=== PATIENT | female | born 1975 | race African-American/Black ===

== ENCOUNTER 2016-09-16 09:58 | Day surgery (SDC) | payer MEDICARE, MEDICAID ==
[~2016-09-16 09:58] MED LIST: CEFAZOLIN 1 GM/D5W RTU 1 GM/50 ML RTUPB IV PRN
[2016-09-16] MEDS ORDERED: BUPIVACAINE HCL 0.5 % INJ/PF 30 ML SDV ONE (10:25)
[2016-09-16] MEDS ORDERED: LIDOCAINE 2% INJ (20 MG/ML) 20 ML MDV ONE (10:25)
[2016-09-16] MEDS ORDERED: ALBUTEROL SULFATE 0.083% NEB 2.5 MG/3 ML AMPUL NEB ONE (11:04)
[2016-09-16] MEDS ORDERED: PROPOFOL INJ 200 MG/20 ML VIAL IV ONE (11:10)
[2016-09-16] MEDS ORDERED: MIDAZOLAM 2 MG/2 ML INJ ONE ×2 (11:10→11:21)
[2016-09-16] MEDS ORDERED: DEXMEDETOMIDINE INJ 80 MCG/20 ML VIAL IV ONE (11:10)
[2016-09-16] MEDS ORDERED: FENTANYL CITRATE INJ/PF 250 MCG/5 ML AMPULE ONE (11:10)
[2016-09-16] MEDS ORDERED: ONDANSETRON HCL INJ/PF 4 MG/2 ML SDV ONE (11:10)
[2016-09-16] MEDS: POLYMYXIN B SULFATE INJ 500000 UNIT VIAL ONE ×2 (12:36)
[2016-09-16] MEDS: BACITRACIN INJ 50,000 UNIT VIAL ONE ×2 (12:36)
[2016-09-16] MEDS: NORMAL SALINE INJ/PF 0.9% 10 ML SDV ONE ×2 (12:36)
--- NOTE | 2016-09-16 14:33 | SURGICARE OPERATIVE REPORT E ---
[facility] Operative Report NAME: LEILANI ENGLISH AGE: 40Y DATE OF SURGERY: 09/16/2016 ROOM: OPERATING SURGEON: CARLINE SILVA DPM DYE COLORIST FORMULATOR: NIR CHAIDEZ DPM PREOPERATIVE DIAGNOSIS: Hallux valgus of the left foot. POSTOPERATIVE DIAGNOSIS: Hallux valgus of the left foot. PROCEDURE: Modified right bunionectomy of the left foot. DESCRIPTION OF PROCEDURE: On 09/16/2016, the patient was admitted to [facility] with complaints of painful left foot, was taken to the operating room where following induction of intravenous sedation and regional local anesthesia, the patient's left foot and leg were prepped and draped in the usual sterile manner. Tourniquet was placed at the proximal ankle malleoli. Esmarch was applied. Tourniquet was inflated to a level of 250 mmHg for the purpose of hemostasis. Esmarch was removed and sterile draping was completed. The following procedure was performed: Modified right bunionectomy. Attention was directed to the dorsal aspect of the patient's first metatarsophalangeal joint where a 3 cm linear incision was placed medial to the longer extensor tendon and was deepened to the subcutaneous tissue and superficial fascia. All bleeding vessels were clamped, ligated, and bovied as necessary for hemostasis. Incision was further deepened via sharp and blunt dissection down to the level of the capsular and periosteal structures that were sharply incised in a similar fashion. Skin incision freed from the osseous attachments, thus bringing in view the hypertrophied medial aspect of the first metatarsal head. At that time, we utilized a sagittal saw with osteomized of the medial bump. At that time, attention was directed to the interspace lateral aspect first metatarsophalangeal joint where a lateral release was performed. Joint was inspected. It was felt that there was an adequate amount of bone removal. It was felt that there was still some dorsal spurring, which was then removed with the rongeur. Joint surfaces were inspected and noted to be free of pitting and any other arthritic changes. There was noted to be thickening of the medial aspect of the capsule of the first metatarsophalangeal joint, and utilizing sharp dissection, the capsule was thinned on its innermost aspect. At that time, the area was flushed with copious amounts of sterile antibiotic solution and inspected for any soft tissue or osseous debris with none being noted. The capsular and periosteal structures were then coapted and maintained with simple interrupted suture of 3-0 Vicryl. At that time, a medial capsulorrhaphy was then performed with a vertical incision at the medial aspect of the joint. It was sutured in a horizontal mattress fashion with 2-0 FiberWire. This was for medial stabilization of the joint. At that time, it was felt that the extensor hallucis longus tendon was still somewhat contracted causing abnormal retrograde pressure on the joint. At that time a z-plasty lengthening was performed. It was coapted and maintained with running, locking suture of 3-0 FiberWire. At that time, EHL tendon sheath was reconstructed and with the capsular and periosteal structures were coapted and maintained with simple interrupted suture of 4-0 Vicryl. Skin incision was then coapted and maintained with interrupted horizontal mattress suture of 4-0 nylon. It should be noted that pre- and post-procedure x-rays were obtained through fluoroscopic studies. Sterile dressing consisting of Vikas silk, 4 x 4's, Kip, Kerlix, and Coflex were applied to the patient's left foot. Tourniquet was rapidly deflated. Capillary filling time was noted to be instantaneous to all digits. The patient appeared to tolerate surgery and anesthesia well and left the operating room with all vital signs and was taken to the recovery room where further monitored by the Anesthesia Department. DICTATING PHYSICIAN: CARLINE SILVA DPM [id number] PHY#: [id number] ID: [id number] JOB#: [id number] ACCT: [id number] cc:CARLINE SILVA DPM > [facility]
== END 2016-09-16 14:55 | disposition home or self-care (01) ==
LOC: SC 09:58
PROVIDERS: ATTEND Preventive Medicine Undersea and Hyperbaric Medicine
PROC: 0QBR0ZZ Excision of Left Toe Phalanx, Open Approach (ICD-10-PCS; 2016-09-16)
PROC: 0QBP0ZZ Excision of Left Metatarsal, Open Approach (ICD-10-PCS; principal; 2016-09-16 11:00)
DX: M20.12 Hallux valgus (acquired), left foot (principal); I10 Essential (primary) hypertension; M19.90 Unspecified osteoarthritis, unspecified site; K21.9 Gastro-esophageal reflux disease without esophagitis; E66.9 Obesity, unspecified; Z79.899 Other long term (current) drug therapy; Z88.2 Allergy status to sulfonamides; Z91.040 Latex allergy status; Z91.041 Radiographic dye allergy status
CPT/HCPCS: 73620; 28292; J2250; J3490 ×5; J0690; J3010; J2405; J2704; A9270; 01480

== ENCOUNTER → 2017-01-01 | Outpatient (CLI) | payer MEDICARE, MEDICAID | LOC: RAD 11:58 | PROVIDERS: ATTEND Obstetrics & Gynecology | DX: Z30.431 Encounter for routine checking of intrauterine contraceptive device (principal); T83.32XA Displacement of intrauterine contraceptive device, initial encounter | CPT/HCPCS: 72170 ==

== ENCOUNTER → 2017-02-18 | Outpatient (CLI) | payer MEDICARE, MEDICAID ==
--- NOTE | 2017-02-23 09:06 | WOMENS IMAGING REPORT ---
EXAM DESCRIPTION: 3D SCREENING MAMMO BILAT COMPLETED DATE/TIME: 02/18/2017 11:15 am REASON FOR STUDY: Z12.31, ROUTINE SCREENING MAMMO (3D) Z12.31 ENCNTR SCREEN MAMMOGRAM FOR MALIGNANT NEOPLASM OF JAYNA COMPARISON: Multiple since 2013 TECHNIQUE: Standard craniocaudal and mediolateral oblique views of each breast recorded using digita l acquisition and breast tomosynthesis. LIMITATIONS: None. FINDINGS: Findings present which are benign by mammographic criteria. No suspicious masses, calcifi cations or architectural distortion. Pertinent benign findings: Benign right breast intramammary lymph nodes Read with the assistance of CAD. .[facility] - R2 Cenova Version 1.3 .[facility] - R2 Cenova Version 1.3 .[facility] - R2 Cenova Version 2.4 .[facility] [place] - R2 Cenova Version 2.4 .[facility] - R2 [employer] Supervisor Version 9.2 Benign mammographic findings may include one or more of the following: Smooth masses, popcorn/rim/co arse calcifications, asymmetries, post-procedure changes, and lesions with long-standing stability. IMPRESSION: BENIGN MAMMOGRAPHIC FINDINGS. BIRADS 2 BREAST DENSITY: b. There are scattered areas of fibroglandular density. BIRAD: 2 BENIGN FINDING(S) RECOMMENDATION: RECOMMENDATION: ROUTINE SCREENING COMMENT: The patient has been notified of the results by letter per SA requirements. Additional no tification policies are in place for contacting patient with suspicious or incomplete findings. Quality ID #[id number]: The [employer] recommends an annual screening mammogram for women aged 40 years or over. This facility utilizes a reminder system to ensure that all patients receive reminder letters, and/or direct phone calls for appointments. This includes reminders for routine scr eening mammograms, diagnostic mammograms, or other Breast Imaging Interventions when appropriate. Th is patient will be placed in the appropriate reminder system. The [employer] (ACR) has developed recommendations for screening MRI of the breast s in certain patient populations, to be used in conjunction with mammography. Breast MRI surveillanc e may be appropriate for women with more than 20% lifetime risk of developing breast cancer as deter mined by genetic testing, significant family history of the disease, or history of mantle radiation f or Hodgkins Disease. ACR Practice Guidelines 2008. DBT Technology DBT is a type of tomographic mammography. With conventional mammography, overlapping breast tissue ma y make lesions difficult to detect, even with good compression. DBT uses an x-ray tube that rotates a round the breast, taking images at different angles. These images are then combined to create thin sl ices of the breast that the radiologist can view as a 3D reconstruction. The YPlan unit can perform full-field digital mammograms (2D imaging); or DBT (3D imaging); or both, in a combination mode that quickly performs both the mammogram and the tomosynthesis scan while the breast is still compressed. PQRS 6045F: Fluoroscopic imaging is not utilized for breast tomosynthesis. TECHNICAL DOCUMENTATION: FINDING NUMBER: (1) ASSESSMENT: (1) JOB ID: [id number] [employer]- All Rights Reserved
== END ==
LOC: WI 10:37
PROVIDERS: ATTEND Internal Medicine
DX: Z12.31 Encounter for screening mammogram for malignant neoplasm of breast (principal)
CPT/HCPCS: 77063; G0202; 77067

== ENCOUNTER 2017-02-23 21:53 | Emergency (ER) | payer MEDICARE, MEDICAID ==
--- NOTE | 2017-02-23 22:52 | ER Document Report ---
ED General - General Chief Complaint: Swelling Stated Complaint: NECK PAIN Time Seen by Provider: 02/23/17 22:09 Notes: Patient is a 41 year old female who presents with a multitude of complaints that have been present over the past 4-5 months unchanged today. No reason for an acute visit to the emergency department today however than that her symptoms have persisted. She reports intermittent generalized fatigue, hand cramping, nausea, swelling of her neck, and feeling overheated. Nothing is new about her symptoms today. Denies anything improves or worsens her symptoms. She states she has seen her primary care doctor and have labs done but does not know the results on. Denies any recent medication changes. Denies any drug or alcohol use. She denies any chest pain, shortness of breath, vomiting or diarrhea. No syncope or fever. States that she did not have these symptoms approximately 6 months ago. TRAVEL OUTSIDE OF THE [place] IN LAST 30 DAYS: No - Related Data Allergies/Adverse Reactions: latex [Latex] Allergy (Severe, Verified 09/06/15 11:39) red blisters Shellfish * [Shellfish] Allergy (Severe, Verified 09/06/15 11:39) throat swells sulfamethoxazole [From Bactrim] Allergy (Mild, Verified 09/06/15 11:39) Generalized rash,swells tongue trimethoprim [From Bactrim] Allergy (Mild, Verified 09/06/15 11:39) Generalized rash,tongue swells calcium carbonate [From Tums] Adverse Reaction (Severe, Verified 09/06/15 11:39) severe abdominal pain surgical tape Allergy (Severe, Uncoded 09/06/15 11:39) Generalized Itching,blisters iodine Allergy (Mild, Uncoded 09/06/15 11:39) stops hair growth IVP DYE Allergy (Uncoded 09/15/16 11:47) Past Medical History - General Information source: Patient - Social History Smoking Status: Never Smoker Chew tobacco use (# tins/day): No Drug Abuse: None Lives with: Family Family History: Reviewed & Not Pertinent Patient has suicidal ideation: No Patient has homicidal ideation: No - Past Medical History Cardiac Medical History: Reports: Hx Hypertension - MEDICATED Denies: Hx Coronary Artery Disease, Hx Heart Attack Pulmonary Medical History: Reports: Hx Pneumonia Denies: Hx Asthma, Hx Bronchitis, Hx COPD Neurological Medical History: Denies: Hx Cerebrovascular Accident, Hx Seizures Endocrine Medical History: Reports: Hx Diabetes Mellitus Type 2 Renal/ Medical History: Denies: Hx Peritoneal Dialysis GI Medical History: Reports: Hx Irritable Bowel. 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 Denies: Hx Hysterectomy, Hx Mastectomy, Hx Open Heart Surgery, Hx Pacemaker - Immunizations Hx Diphtheria, Pertussis, Tetanus Vaccination: No Hx Pneumococcal Vaccination: 08/30/12 Review of Systems - Review of Systems Notes: Constitutional: Negative for fever. HENT: Negative for sore throat. Eyes: Negative for visual changes. Cardiovascular: Negative for chest pain. Respiratory: Negative for shortness of breath. Gastrointestinal: Negative for abdominal pain, vomiting or diarrhea. Genitourinary: Negative for dysuria. Musculoskeletal: Negative for back pain. Skin: Negative for rash. Neurological: Negative for headaches, weakness or numbness. 10 point ROS negative except as marked above and in HPI. Physical Exam - Vital signs Vitals: Temp Pulse Resp BP Pulse Ox 98.1 F 98 18 189/104 H 98 02/23/17 21:57 02/23/17 21:57 02/23/17 21:57 02/23/17 21:57 02/23/17 21:57 Interpretation: Hypertensive Notes: PHYSICAL EXAMINATION: GENERAL: Well-appearing, well-nourished and in no acute distress. HEAD: Atraumatic, normocephalic. EYES: Pupils equal round and reactive to light, extraocular movements intact, sclera anicteric, conjunctiva are normal. ENT: nares patent, oropharynx clear without exudates. Moist mucous membranes. NECK: Normal range of motion, supple without lymphadenopathy LUNGS: Breath sounds clear to auscultation bilaterally and equal. No wheezes rales or rhonchi. HEART: Regular rate and rhythm without murmurs ABDOMEN: Soft, nontender, normoactive bowel sounds. No guarding, no rebound. No masses appreciated. EXTREMITIES: Normal range of motion, no pitting or edema. No cyanosis. NEUROLOGICAL: No focal neurological deficits. Moves all extremities spontaneously and on command. PSYCH: Normal mood, normal affect. SKIN: Warm, Dry, normal turgor, no rashes or lesions noted. Course - Re-evaluation Re-evalutation: 02/23/17 22:52 Patient presents with multiple vague complaints that did not appear to be concerning for any acute life-threatening pathology. Vitals are within normal limits at triage and at time of discharge. Physical examination is unremarkable. Patient has tolerated oral intake without difficulty. Patient was not noted to be in distress at any point during their ER visit. At this time, based on the reassuring evaluation, I do not suspect an acute NE, pulmonary embolus, aortic dissection, acute intra-abdominal pathology, stroke, or sepsis.Will discharge with return precautions and follow-up recommendations. Verbal discharge instructions given a the bedside and opportunity for questions given. Medication warnings reviewed. Patient is in agreement with this plan and has verbalized understanding of return precautions and the need for primary care follow-up in the next 24-72 hours. - Vital Signs Vital signs: Temp Pulse Resp BP Pulse Ox 98.1 F 99 18 168/103 H 98 02/23/17 21:57 02/24/17 01:17 02/24/17 01:17 02/24/17 01:17 02/24/17 01:17 - Laboratory Result Diagrams: 02/23/17 23:25 02/23/17 23:25 Laboratory results interpreted by me: 02/23/17 02/23/17 02/23/17 23:25 23:25 23:25 Hct 35.6 L MCV 75 L MCH 25.4 L RDW 16.1 H Monocytes % 13.4 H Glucose 144 H Hemoglobin A1c % 6.6 H Discharge - Discharge Clinical Impression: Hyperglycemia Fatigue Qualifiers: Fatigue type: unspecified Qualified Code(s): R53.83 - Other fatigue Condition: Good Disposition: HOME, SELF-CARE Additional Instructions: Please follow-up with your primary care doctor regarding your symptoms today. Please return to the emergency room immediately if you experience any concerning symptoms including high fevers, severe headache, chest pain, difficulty breathing, abdominal pain, slurred speech, numbness or weakness in your arms or legs, or any other symptom that concerns you. Referrals: GERRY DONAHUE MD [Primary Care Provider] - Follow up as needed
[2017-02-23 23:56] LABS: ABSOLUTE EOSINOPHILS # (AUTO) 0.2 10^3/uL (0.0-0.6); ABSOLUTE LYMPHOCYTES (AUTO) 2.8 10^3/uL (0.5-4.7); ABSOLUTE MONOCYTES (AUTO) 1.1 10^3/uL (0.1-1.4); BASOPHILS % (AUTO) 0.5 % (0-2); EOSINOPHILS % (AUTO) 2.5 % (0-6); HEMATOCRIT 35.6 % (36.0-47.0); HEMOGLOBIN 12.1 g/dL (12.0-15.5); HGB HCT DIFFERENCE 0.7; LYMPHOCYTES % (AUTO) 34.3 % (13-45); MEAN CORPUSCULAR HEMOGLOBIN 25.4 pg (27.0-33.4); MEAN CORPUSCULAR HGB CONC 33.9 g/dL (32.0-36.0); MEAN CORPUSCULAR VOLUME 75 fl (80-97); MONOCYTES % (AUTO) 13.4 % (3-13); RED BLOOD COUNT 4.75 10^6/uL (3.72-5.28); RED CELL DISTRIBUTION WIDTH 16.1 % (11.5-14.0); SEGMENTED NEUTROPHILS % (AUTO) 49.3 % (42-78); WHITE BLOOD COUNT 8.2 10^3/uL (4.0-10.5)
[2017-02-24 00:08] LABS: ANION GAP 11 (5-19); BLOOD UREA NITROGEN 14 mg/dL (7-20); CALCIUM 9.1 mg/dL (8.4-10.2); CARBON DIOXIDE 27 mmol/L (22-30); CHLORIDE 104 mmol/L (98-107); GLUCOSE 144 mg/dL (75-110); POTASSIUM 4.1 mmol/L (3.6-5.0); SODIUM 141.8 mmol/L (137-145)
[2017-02-24 01:18] VITALS: BP 168/103
[2017-02-24 01:28] LABS: THYROID STIMULATING HORMONE 3.47 uIU/mL (0.47-4.68)
== END 2017-02-24 01:17 | disposition home or self-care (01) ==
LOC: ER 21:53
DX: E11.65 Type 2 diabetes mellitus with hyperglycemia (principal); R22.1 Localized swelling, mass and lump, neck; R53.83 Other fatigue; R11.0 Nausea; R25.2 Cramp and spasm; I10 Essential (primary) hypertension; Z91.040 Latex allergy status; Z91.041 Radiographic dye allergy status; Z91.013 Allergy to seafood
CPT/HCPCS: 36415; 80048; 83036; 84439; 84443; 84703; 85025; 99283

== ENCOUNTER 2017-02-27 19:28 | Emergency (ER) | payer MEDICARE, MEDICAID ==
--- NOTE | 2017-02-27 20:45 | ER Document Report ---
ED Medical Screen (RME) - General Chief Complaint: Abdominal Pain Stated Complaint: ABDOMEN PAIN Time Seen by Provider: 02/27/17 20:29 Notes: Patient is complaining of abdominal pain, primarily in the right upper quadrant and epigastric region of her abdomen for the past month, every day.. Patient says that she was here Wednesday and evaluated because she was having the same pain and also feeling hot and sweaty. She says that she has had nausea and vomiting for the past 4 days, maybe 3 times a day. She is also had just as much diarrhea, also for 4 days, since Wednesday. She feels some pressure in her throat, but is able to swallow without difficulty. Has not had any fevers. Was also seen in her private doctor's office on Wednesday. PMH: C-sections, IUD, hypertension, TRAVEL OUTSIDE OF THE [place] IN LAST 30 DAYS: No - Related Data Allergies/Adverse Reactions: latex [Latex] Allergy (Severe, Verified 09/06/15 11:39) red blisters Shellfish * [Shellfish] Allergy (Severe, Verified 09/06/15 11:39) throat swells sulfamethoxazole [From Bactrim] Allergy (Mild, Verified 09/06/15 11:39) Generalized rash,swells tongue trimethoprim [From Bactrim] Allergy (Mild, Verified 09/06/15 11:39) Generalized rash,tongue swells calcium carbonate [From Tums] Adverse Reaction (Severe, Verified 09/06/15 11:39) severe abdominal pain surgical tape Allergy (Severe, Uncoded 09/06/15 11:39) Generalized Itching,blisters iodine Allergy (Mild, Uncoded 09/06/15 11:39) stops hair growth IVP DYE Allergy (Uncoded 09/15/16 11:47) Past Medical History - Social History Chew tobacco use (# tins/day): No Frequency of alcohol use: None Drug Abuse: None - Past Medical History Cardiac Medical History: Reports: Hx Hypertension - MEDICATED Denies: Hx Coronary Artery Disease, Hx Heart Attack Pulmonary Medical History: Reports: Hx Pneumonia Denies: Hx Asthma, Hx Bronchitis, Hx COPD Neurological Medical History: Denies: Hx Cerebrovascular Accident, Hx Seizures Endocrine Medical History: Reports: Hx Diabetes Mellitus Type 2 Renal/ Medical History: Denies: Hx Peritoneal Dialysis GI Medical History: Reports: Hx Irritable Bowel. 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 Denies: Hx Hysterectomy, Hx Mastectomy, Hx Open Heart Surgery, Hx Pacemaker - Immunizations Hx Diphtheria, Pertussis, Tetanus Vaccination: No Physical Exam - Vital signs Vitals: Temp Pulse Resp BP Pulse Ox 99.1 F 90 17 142/70 H 99 02/27/17 19:58 02/27/17 19:58 02/27/17 19:58 02/27/17 19:58 02/27/17 19:58 Course - Vital Signs Vital signs: Temp Pulse Resp BP Pulse Ox 99.1 F 90 17 142/70 H 99 02/27/17 19:58 02/27/17 19:58 02/27/17 19:58 02/27/17 19:58 02/27/17 19:58
[2017-02-27 21:14] LABS: ABSOLUTE EOSINOPHILS # (AUTO) 0.1 10^3/uL (0.0-0.6); ABSOLUTE LYMPHOCYTES (AUTO) 3.7 10^3/uL (0.5-4.7); ABSOLUTE MONOCYTES (AUTO) 1.3 10^3/uL (0.1-1.4); ABSOLUTE NEUT (AUTO) 4.2 10^3/uL (1.7-8.2); BASOPHILS % (AUTO) 0.2 % (0-2); EOSINOPHILS % (AUTO) 1.1 % (0-6); HEMATOCRIT 35.3 % (36.0-47.0); HEMOGLOBIN 11.7 g/dL (12.0-15.5); HGB HCT DIFFERENCE -0.2; LYMPHOCYTES % (AUTO) 39.6 % (13-45); MEAN CORPUSCULAR HEMOGLOBIN 25.1 pg (27.0-33.4); MEAN CORPUSCULAR HGB CONC 33.2 g/dL (32.0-36.0); MEAN CORPUSCULAR VOLUME 76 fl (80-97); MONOCYTES % (AUTO) 14.3 % (3-13); RED BLOOD COUNT 4.65 10^6/uL (3.72-5.28); RED CELL DISTRIBUTION WIDTH 16.6 % (11.5-14.0); SEGMENTED NEUTROPHILS % (AUTO) 44.8 % (42-78); WHITE BLOOD COUNT 9.3 10^3/uL (4.0-10.5)
[2017-02-27 21:23] LABS: APPEARANCE,URINE SLIGHTLY-CLOUDY; BILIRUBIN,URINE NEGATIVE (NEGATIVE); GLUCOSE, URINE NEGATIVE (NEGATIVE); KETONES,URINE NEGATIVE (NEGATIVE); LEUKOCYTE ESTERASE,URINE NEGATIVE (NEGATIVE); NITRITE,URINE NEGATIVE (NEGATIVE); PROTEIN,URINE 100 mg/dL (NEGATIVE); URINE SPECIFIC GRAVITY 1.019; UROBILINOGEN,URINE NEGATIVE mg/dL (<2.0)
[2017-02-27 21:26] LABS: ALANINE AMINOTRANSFERASE 35 U/L (9-52); ALBUMIN 4.1 g/dL (3.5-5.0); ALKALINE PHOSPHATASE 104 U/L (38-126); ANION GAP 13 (5-19); ASPARTATE AMINO TRANSFERASE 22 U/L (14-36); BILIRUBIN,DIRECT 0.3 mg/dL (0.0-0.4); BILIRUBIN,TOTAL 0.4 mg/dL (0.2-1.3); BLOOD UREA NITROGEN 9 mg/dL (7-20); CALCIUM 8.6 mg/dL (8.4-10.2); CARBON DIOXIDE 26 mmol/L (22-30); CHLORIDE 102 mmol/L (98-107); CREATININE RESULT 0.85 mg/dL (0.52-1.25); GLUCOSE 165 mg/dL (75-110); LIPASE 473.1 U/L (23-300); POTASSIUM 3.9 mmol/L (3.6-5.0); SODIUM 140.9 mmol/L (137-145); TOTAL PROTEIN 7.7 g/dL (6.3-8.2)
--- NOTE | 2017-02-27 22:03 | ER Document Report ---
ED GI/ - General Chief Complaint: Abdominal Pain Stated Complaint: ABDOMEN PAIN Time Seen by Provider: 02/27/17 20:29 Notes: Patient is a 41-year-old female comes emergency department for chief complaint of abdominal pain, she states the pain is worst in her mid upper abdomen, she states she has had this for the past month, she states she has had about 2-3 episodes of vomiting over the past 4 days, she denies blood in vomit, she reports some diarrhea but denies black or bloody stools. She denies fever or chills. Past medical history of , IUD placement, hypertension, GERD. He states she is taking omeprazole daily. TRAVEL OUTSIDE OF THE [place] IN LAST 30 DAYS: No - Related Data Allergies/Adverse Reactions: latex [Latex] Allergy (Severe, Verified 09/06/15 11:39) red blisters Shellfish * [Shellfish] Allergy (Severe, Verified 09/06/15 11:39) throat swells sulfamethoxazole [From Bactrim] Allergy (Mild, Verified 09/06/15 11:39) Generalized rash,swells tongue trimethoprim [From Bactrim] Allergy (Mild, Verified 09/06/15 11:39) Generalized rash,tongue swells calcium carbonate [From Tums] Adverse Reaction (Severe, Verified 09/06/15 11:39) severe abdominal pain surgical tape Allergy (Severe, Uncoded 09/06/15 11:39) Generalized Itching,blisters iodine Allergy (Mild, Uncoded 09/06/15 11:39) stops hair growth IVP DYE Allergy (Uncoded 09/15/16 11:47) Past Medical History - General Information source: Patient - Social History Smoking Status: Never Smoker Chew tobacco use (# tins/day): No Frequency of alcohol use: None Drug Abuse: None Lives with: Family Family History: Reviewed & Not Pertinent Patient has suicidal ideation: No Patient has homicidal ideation: No - Past Medical History Cardiac Medical History: Reports: Hx Hypertension - MEDICATED Denies: Hx Coronary Artery Disease, Hx Heart Attack Pulmonary Medical History: Reports: Hx Pneumonia Denies: Hx Asthma, Hx Bronchitis, Hx COPD Neurological Medical History: Denies: Hx Cerebrovascular Accident, Hx Seizures Endocrine Medical History: Reports: Hx Diabetes Mellitus Type 2 Renal/ Medical History: Denies: Hx Peritoneal Dialysis GI Medical History: Reports: Hx Irritable Bowel. 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 Denies: Hx Hysterectomy, Hx Mastectomy, Hx Open Heart Surgery, Hx Pacemaker - Immunizations Hx Diphtheria, Pertussis, Tetanus Vaccination: No Hx Pneumococcal Vaccination: 08/30/12 Review of Systems - Review of Systems Constitutional: No symptoms reported EENT: No symptoms reported Cardiovascular: No symptoms reported Respiratory: No symptoms reported Gastrointestinal: See HPI Genitourinary: No symptoms reported Female Genitourinary: No symptoms reported Musculoskeletal: No symptoms reported Skin: No symptoms reported Hematologic/Lymphatic: No symptoms reported Neurological/Psychological: No symptoms reported Physical Exam - Vital signs Vitals: Temp Pulse Resp BP Pulse Ox 99.1 F 90 17 142/70 H 99 02/27/17 19:58 02/27/17 19:58 02/27/17 19:58 02/27/17 19:58 02/27/17 19:58 Interpretation: Normal - General General appearance: Appears well, Alert In distress: None - HEENT Head: Normocephalic, Atraumatic Eyes: Normal Extraocular movements intact: Yes Eyelashes: Normal Pupils: PERRL Nasal: Normal Mouth/Lips: Normal Mucous membranes: Normal Pharynx: Normal Neck: Normal - Respiratory Respiratory status: No respiratory distress Chest status: Nontender Breath sounds: Normal Chest palpation: Normal - Cardiovascular Rhythm: Regular Heart sounds: Normal auscultation Murmur: No - Abdominal Inspection: Normal Distension: No distension Bowel sounds: Normal Tenderness: Tender - Generalized mild tenderness in the upper abdomen with no Quinn sign, no guarding, no rigidity, no rebound Organomegaly: No organomegaly - Back Back: Normal, Nontender. No: Tender, CVA tenderness - Extremities General upper extremity: Normal inspection, Nontender, Normal color, Normal ROM , Normal temperature General lower extremity: Normal inspection, Nontender, Normal color, Normal ROM , Normal temperature, Normal weight bearing. No: Gayla's sign - Neurological Neuro grossly intact: Yes Cognition: Normal Orientation: AAOx4 Emma Coma Scale Eye Opening: Spontaneous Emma Coma Scale Verbal: Oriented Mccall Coma Scale Motor: Obeys Commands Emma Coma Scale Total: 15 Speech: Normal Motor strength normal: LUE, RUE, LLE, RLE Sensory: Normal - Psychological Associated symptoms: Normal affect, Normal mood - Skin Skin Temperature: Warm Skin Moisture: Dry Skin Color: Normal Course - Re-evaluation Re-evalutation: Well-appearing. She tolerated Carafate and fluids by mouth without any difficulty. She had improvement of her symptoms. Ultrasound reviewed and shows no acute abnormality. CBC, chemistry, lipase reviewed and showed no concerning abnormalities. Discussed all results in detail with patient. Will prescribe prescription of Carafate for her to take in addition to the omeprazole , discussed follow-up recommendations, discussed return precautions, patient states understanding and agreement. - Vital Signs Vital signs: Temp Pulse Resp BP Pulse Ox 97.5 F 78 18 129/61 H 98 02/27/17 23:49 02/27/17 23:49 02/27/17 23:49 02/27/17 23:49 02/27/17 23:49 - Laboratory Result Diagrams: 02/27/17 20:50 02/27/17 20:50 Laboratory results interpreted by me: 02/27/17 02/27/17 02/27/17 20:35 20:50 20:50 Hgb 11.7 L Hct 35.3 L MCV 76 L MCH 25.1 L RDW 16.6 H Monocytes % 14.3 H Glucose 165 H Lipase 473.1 H Urine Protein 100 H Discharge - Discharge Clinical Impression: Abdominal pain Qualifiers: Abdominal location: upper abdomen, unspecified Qualified Code(s): R10.10 - Upper abdominal pain, unspecified Disposition: HOME, SELF-CARE Additional Instructions: Your workup today did not show any concerning abnormalities, your ultrasound is normal The exact cause of your upper abdominal pain and nausea/vomiting is unclear, take the Carafate as prescribed, take the nausea medication if needed, continue with bland food diet. If symptoms continue I recommend a follow-up with his primary care provider, you may need a HIDA scan, you may need additional workup as well. Return to emergency department for any concerning or worsening symptoms including severe pain, uncontrolled vomiting, bloody bowel movements, or any other concerning symptoms. Prescriptions: Ondansetron [Zofran Odt 4 mg Tablet] 1 - 2 tab PO Q4H PRN #20 tab.rapdis PRN Reason: For Nausea/Vomiting Sucralfate [Carafate 1 gm Tablet] 1 gm PO QID #40 tablet Referrals: GERRY DONAHUE MD [Primary Care Provider] - Follow up as needed
--- NOTE | 2017-02-27 22:51 | RADIOLOGY REPORT (SQ) ---
EXAM DESCRIPTION: U/S ABDOMEN LIMITED W/O DOP COMPLETED DATE/TIME: 02/27/2017 10:41 pm REASON FOR STUDY: epigastric pain, vomiting COMPARISON: None. TECHNIQUE: Dynamic and static grayscale images acquired of the abdomen and recorded on PACS. Additio nal selected color Doppler and spectral images recorded. LIMITATIONS: Intervening bowel gas limits evaluation of those body and tail of pancreas. FINDINGS: PANCREAS: No masses. Visualized pancreatic duct normal caliber. LIVER: No masses. Echotexture normal. LIVER VASCULATURE: Normal directional flow of the main portal vein and hepatic veins. GALLBLADDER: No stones. Normal wall thickness. No pericholecystic fluid. ULTRASOUND-DETECTED SHER'S SIGN: Negative. INTRAHEPATIC DUCTS AND COMMON DUCT: CBD and intrahepatic ducts normal caliber. No filling defects. INFERIOR VENA CAVA: Normal flow. AORTA: No aneurysm. RIGHT KIDNEY: Normal size. Normal echogenicity. No solid or suspicious masses. No hydronephrosis. No calcifications. PERITONEAL AND RIGHT PLEURAL SPACE: No ascites or effusions. OTHER: No other significant findings. IMPRESSION: NORMAL RIGHT UPPER QUADRANT ULTRASOUND. TECHNICAL DOCUMENTATION: JOB ID: [id number] [employer]- All Rights Reserved
[2017-02-27] MEDS ORDERED: SUCRALFATE 1 GM TABLET PO ONE (23:20)
[2017-02-27 23:51] VITALS: BP 129/61
== END 2017-02-27 23:51 | disposition home or self-care (01) ==
LOC: ER 19:28
DX: R10.10 Upper abdominal pain, unspecified (principal); R11.10 Vomiting, unspecified; K21.9 Gastro-esophageal reflux disease without esophagitis; I10 Essential (primary) hypertension; E11.9 Type 2 diabetes mellitus without complications; M17.0 Bilateral primary osteoarthritis of knee; M47.9 Spondylosis, unspecified; Z88.3 Allergy status to other anti-infective agents; Z91.041 Radiographic dye allergy status; Z91.013 Allergy to seafood; Z91.040 Latex allergy status; Z97.5 Presence of (intrauterine) contraceptive device
CPT/HCPCS: 99284; 36415; 83690; 84703; 85025; 80053; 81001; 76705; A9270

== ENCOUNTER 2018-02-15 23:25 | Emergency (ER) | payer MEDICARE, MEDICAID ==
[2018-02-16 02:35] LABS: ABSOLUTE BASOPHILS # (AUTO) 0.1 10^3/uL (0.0-0.2); ABSOLUTE EOSINOPHILS # (AUTO) 0.1 10^3/uL (0.0-0.6); ABSOLUTE LYMPHOCYTES (AUTO) 3.3 10^3/uL (0.5-4.7); ABSOLUTE NEUT (AUTO) 5.4 10^3/uL (1.7-8.2); BASOPHILS % (AUTO) 0.9 % (0-2); EOSINOPHILS % (AUTO) 0.7 % (0-6); HEMATOCRIT 34.6 % (36.0-47.0); LYMPHOCYTES % (AUTO) 33.5 % (13-45); MEAN CORPUSCULAR HEMOGLOBIN 26.1 pg (27.0-33.4); MEAN CORPUSCULAR HGB CONC 34.6 g/dL (32.0-36.0); MEAN CORPUSCULAR VOLUME 76 fl (80-97); MONOCYTES % (AUTO) 9.8 % (3-13); PLATELET COUNT 281 10^3/uL (150-450); RED BLOOD COUNT 4.58 10^6/uL (3.72-5.28); RED CELL DISTRIBUTION WIDTH 16.4 % (11.5-14.0); SEGMENTED NEUTROPHILS % (AUTO) 55.1 % (42-78); TOTAL CELLS COUNTED % (AUTO) 100 %; WHITE BLOOD COUNT 9.8 10^3/uL (4.0-10.5)
--- NOTE | 2018-02-16 02:46 | ER Document Report ---
ED General - General Chief Complaint: Headache Stated Complaint: ABDOMINAL PAIN Time Seen by Provider: 02/16/18 02:30 Mode of Arrival: Ambulatory Information source: Patient Notes: 42 yr old female hx of peripheral edema on furosemide 40 mg daily presents with multiple complaints. pt notes that she has a sharp pain o nthe left chest that hurts with coughingof 2-3 week duration, denies any sob or dvt or pe risk factors, pt then notes abdominal pain over the past few months intermittently sharp, then patient admits to neck pain on the left when she rotates the neck radiating to the left shoulder and to her back. pt then notes bilateral peripheral edema worsening over the past 3 weeks that resolves with raising legs. pt then notes that she is seeing different colors, she notes her dress is red but she sees it as pink and something was brown and she saw it as black. TRAVEL OUTSIDE OF THE [place] IN LAST 30 DAYS: No - HPI Onset: Other Onset/Duration: Persistent Quality of pain: Cramping Severity: Moderate Pain Level: 2 Associated symptoms: Body/muscle aches, Nonproductive cough, Headache, Leg swelling Exacerbated by: Movement Relieved by: Denies Similar symptoms previously: No Recently seen / treated by doctor: No - Related Data Allergies/Adverse Reactions: latex [Latex] Allergy (Severe, Verified 09/06/15 11:39) red blisters Shellfish * [Shellfish] Allergy (Severe, Verified 09/06/15 11:39) throat swells sulfamethoxazole [From Bactrim] Allergy (Mild, Verified 09/06/15 11:39) Generalized rash,swells tongue trimethoprim [From Bactrim] Allergy (Mild, Verified 09/06/15 11:39) Generalized rash,tongue swells calcium carbonate [From Tums] Adverse Reaction (Severe, Verified 09/06/15 11:39) severe abdominal pain surgical tape Allergy (Severe, Uncoded 09/06/15 11:39) Generalized Itching,blisters iodine Allergy (Mild, Uncoded 09/06/15 11:39) stops hair growth IVP DYE Allergy (Uncoded 09/15/16 11:47) Past Medical History - Social History Smoking Status: Never Smoker Cigarette use (# per day): No Chew tobacco use (# tins/day): No Smoking Education Provided: No Family History: Reviewed & Not Pertinent - Past Medical History Cardiac Medical History: Reports: Hx Hypertension - MEDICATED Denies: Hx Coronary Artery Disease, Hx Heart Attack Pulmonary Medical History: Reports: Hx Pneumonia Denies: Hx Asthma, Hx Bronchitis, Hx COPD Neurological Medical History: Denies: Hx Cerebrovascular Accident, Hx Seizures Endocrine Medical History: Reports: Hx Diabetes Mellitus Type 2 Renal/ Medical History: Denies: Hx Peritoneal Dialysis GI Medical History: Reports: Hx Irritable Bowel. 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 Denies: Hx Hysterectomy, Hx Mastectomy, Hx Open Heart Surgery, Hx Pacemaker - Immunizations Hx Diphtheria, Pertussis, Tetanus Vaccination: No Hx Pneumococcal Vaccination: 08/30/12 Review of Systems - Review of Systems Notes: REVIEW OF SYSTEMS: CONSTITUTIONAL : Denies fever, chills, or sweats. admits to multiple recent illnesses EENT: admits to visual issues CARDIOVASCULAR: admits to peripheral edema RESPIRATORY: admits to cough GASTROINTESTINAL: admits to abd pain GENITOURINARY: Denies difficulty urinating, painful urination, burning, frequency, blood in urine, or discharge. FEMALE GENITOURINARY: Denies vaginal bleeding, heavy or abnormal periods, irregular periods. Denies vaginal discharge or odor. MUSCULOSKELETAL: admits to neck pain back pain SKIN: Denies rash, lesions or sores. HEMATOLOGIC : Denies easy bruising or bleeding. LYMPHATIC: Denies swollen, enlarged glands. NEUROLOGICAL: admits to headache PSYCHIATRIC: Denies anxiety or stress. Denies depression, suicidal ideation, or homicidal ideation. ALL OTHER SYSTEMS REVIEWED AND NEGATIVE. PHYSICAL EXAMINATION: GENERAL: Well-appearing, well-nourished and in no acute distress. HEAD: Atraumatic, normocephalic. EYES: Pupils equal round and reactive to light, extraocular movements intact, conjunctiva are normal. ENT: Nares patent, oropharynx clear without exudates. Moist mucous membranes. NECK: Normal range of motion, supple without lymphadenopathy LUNGS: Breath sounds clear to auscultation bilaterally and equal. No wheezes rales or rhonchi. HEART: Regular rate and rhythm without murmurs ABDOMEN: Soft, nontender, nondistended abdomen. No guarding, no rebound. No masses appreciated. Female : deferred Musculoskeletal: +3 pitting edema bilaterally NEUROLOGICAL: Cranial nerves grossly intact. Normal speech, normal gait. Normal sensory, motor exams PSYCH: Normal mood, normal affect. SKIN: Warm, Dry, normal turgor, no rashes or lesions noted. Dictation was performed using [employer] voice recognition software Physical Exam - Vital signs Vitals: Temp Pulse Resp BP Pulse Ox 98.9 F 81 18 169/91 H 97 02/15/18 23:46 02/15/18 23:46 02/15/18 23:46 02/15/18 23:46 02/15/18 23:46 Course - Re-evaluation Re-evalutation: 02/16/18 02:46 pts complaints note multiple systemic issues none of which seem to be life threatening or acute. pt does have periheral edeam, workup pending no signs of dvt pe. 02/16/18 05:09 Workup notes no signs of congestive heart failure, I have encouraged the patient to increase her dosage of furosemide to help with her peripheral edema, otherwise she is in no distress cardiac workup was benign her complaints appear to be chronic in nature rather than a life-threatening acute concern. 02/16/18 05:10 After performing a Medical Screening Examination, I estimate there is LOW risk for RUPTURED ESOPHAGUS, PNEUMOTHORAX, PULMONARY EMBOLISM, ACUTE CORONARY SYNDROME, OR THORACIC AORTIC DISSECTION, thus I consider the discharge disposition reasonable. I have reevaluated this patient multiple times and no significant life threatening changes are noted. The patient and I have discussed the diagnosis and risks, and we agree with discharging home with close follow-up. We also discussed returning to the Emergency Department immediately if new or worsening symptoms occur. We have discussed the symptoms which are most concerning (e.g., bloody sputum, worsening pain or shortness of breath) that necessitate immediate return. - Vital Signs Vital signs: Temp Pulse Resp BP Pulse Ox 98.9 F 81 18 169/91 H 97 02/15/18 23:46 02/15/18 23:46 02/15/18 23:46 02/15/18 23:46 02/15/18 23:46 - Laboratory Result Diagrams: 02/16/18 02:20 02/16/18 02:20 Laboratory results interpreted by me: 02/16/18 02/16/18 02/16/18 02:20 02:20 02:20 Hct 34.6 L MCV 76 L MCH 26.1 L RDW 16.4 H Sodium 148.4 H Chloride 110 H Glucose 126 H Creatine Kinase 199 H Urine Protein 02/16/18 02:56 Hct MCV MCH RDW Sodium Chloride Glucose Creatine Kinase Urine Protein 30 H - Diagnostic Test Radiology reviewed: Image reviewed, Reports reviewed - EKG Interpretation by Me EKG shows normal: Sinus rhythm, [place], Intervals, QRS Complexes Discharge - Discharge Clinical Impression: Peripheral edema Chest pain Qualifiers: Chest pain type: intercostal pain Qualified Code(s): R07.82 - Intercostal pain Condition: Stable Disposition: HOME, SELF-CARE Instructions: Chest Pain of Unclear Cause ([facility]), Chest Wall Pain ([facility]) Referrals: GERRY DONAHUE MD [Primary Care Provider] - Follow up tomorrow
[2018-02-16 02:52] LABS: ALANINE AMINOTRANSFERASE 29 U/L (9-52); ALKALINE PHOSPHATASE 71 U/L (38-126); ANION GAP 11 (5-19); ASPARTATE AMINO TRANSFERASE 22 U/L (14-36); BILIRUBIN,DIRECT 0.3 mg/dL (0.0-0.4); BILIRUBIN,TOTAL 0.3 mg/dL (0.2-1.3); BLOOD UREA NITROGEN 14 mg/dL (7-20); CALCIUM 9.1 mg/dL (8.4-10.2); CARBON DIOXIDE 27 mmol/L (22-30); CHLORIDE 110 mmol/L (98-107); GLUCOSE 126 mg/dL (75-110); LIPASE 56.1 U/L (23-300); SODIUM 148.4 mmol/L (137-145); TOTAL PROTEIN 7.4 g/dL (6.3-8.2)
[2018-02-16 03:46] LABS: APPEARANCE,URINE CLEAR; BILIRUBIN,URINE NEGATIVE (NEGATIVE); COLOR,URINE YELLOW; GLUCOSE, URINE NEGATIVE (NEGATIVE); KETONES,URINE NEGATIVE (NEGATIVE); LEUKOCYTE ESTERASE,URINE NEGATIVE (NEGATIVE); NITRITE,URINE NEGATIVE (NEGATIVE); PROTEIN,URINE 30 mg/dL (NEGATIVE); URINE SPECIFIC GRAVITY 1.024; UROBILINOGEN,URINE NEGATIVE mg/dL (<2.0)
[2018-02-16 03:54] LABS: CREATINE KINASE MB 0.95 ng/mL (<4.55)
[2018-02-16 03:55] LABS: TROPONIN I < 0.012 ng/mL
--- NOTE | 2018-02-16 04:35 | RADIOLOGY REPORT (SQ) ---
EXAM DESCRIPTION: XR CHEST 2 VIEWS COMPLETED DATE/TME: 02/16/2018 03:46 CLINICAL HISTORY: 42 years Female, peripheral edema COMPARISON: 3.22.18 FINDINGS: Adequate lung volume, clear parenchyma, normal cardiac silhouette, and intact bony thorax. IMPRESSION: No acute cardiopulmonary findings.
[2018-02-16] MEDS ORDERED: KETOROLAC TROMETHAMINE 10 MG TABLET PO ONE (05:12)
[2018-02-16] MEDS ORDERED: NAPROXEN 250 MG TABLET PO ONE (05:32)
[2018-02-16 05:33] VITALS: BP 177/88
== END 2018-02-16 05:41 | disposition home or self-care (01) ==
LOC: ER 23:25
DX: R60.9 Edema, unspecified (principal); R51 Headache; M79.1 Myalgia; R05 Cough; I10 Essential (primary) hypertension; E11.9 Type 2 diabetes mellitus without complications; Z91.040 Latex allergy status; Z88.3 Allergy status to other anti-infective agents; Z91.013 Allergy to seafood
CPT/HCPCS: 99285; 36415; 82553; 82550; 83690; 84703; 85025; 80053; 81001; 84484; 83880; 71046; A9270

== ENCOUNTER 2018-03-11 17:21 | Emergency (ER) | payer MEDICARE, MEDICAID ==
[2018-03-11] MEDS ORDERED: ASPIRIN 325 MG TABLET PO ONE (17:46)
--- NOTE | 2018-03-11 17:51 | ER Document Report ---
ED Medical Screen (RME) - General Chief Complaint: High Blood Pressure Stated Complaint: BLOOD PRESSURE PROBLEMS Time Seen by Provider: 03/11/18 17:45 Mode of Arrival: Ambulatory Information source: Patient TRAVEL OUTSIDE OF THE [place] IN LAST 30 DAYS: No - HPI Patient complains to provider of: CP/ elevated BP Onset: Yesterday - pt with c/o CP and elevated BP for the past several days. Has not taken ASA today - Related Data Allergies/Adverse Reactions: latex [Latex] Allergy (Severe, Verified 03/11/18 17:21) red blisters Shellfish * [Shellfish] Allergy (Severe, Verified 03/11/18 17:21) throat swells sulfamethoxazole [From Bactrim] Allergy (Mild, Verified 03/11/18 17:21) Generalized rash,swells tongue trimethoprim [From Bactrim] Allergy (Mild, Verified 03/11/18 17:21) Generalized rash,tongue swells calcium carbonate [From Tums] Adverse Reaction (Severe, Verified 03/11/18 17:21) severe abdominal pain surgical tape Allergy (Severe, Uncoded 03/11/18 17:21) Generalized Itching,blisters iodine Allergy (Mild, Uncoded 03/11/18 17:21) stops hair growth IVP DYE Allergy (Uncoded 03/11/18 17:21) Past Medical History - Social History Chew tobacco use (# tins/day): No Frequency of alcohol use: None Drug Abuse: None - Past Medical History Cardiac Medical History: Reports: Hx Hypertension - MEDICATED Denies: Hx Coronary Artery Disease, Hx Heart Attack Pulmonary Medical History: Reports: Hx Pneumonia Denies: Hx Asthma, Hx Bronchitis, Hx COPD Neurological Medical History: Denies: Hx Cerebrovascular Accident, Hx Seizures Endocrine Medical History: Reports: Hx Diabetes Mellitus Type 2 Renal/ Medical History: Denies: Hx Peritoneal Dialysis GI Medical History: Reports: Hx Irritable Bowel. 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 Denies: Hx Hysterectomy, Hx Mastectomy, Hx Open Heart Surgery, Hx Pacemaker - Immunizations Hx Diphtheria, Pertussis, Tetanus Vaccination: No Physical Exam - Vital signs Vitals: Temp Pulse Resp BP Pulse Ox 99.1 F 84 16 185/94 H 97 03/11/18 17:38 03/11/18 17:38 03/11/18 17:38 03/11/18 17:38 03/11/18 17:38 Course - Vital Signs Vital signs: Temp Pulse Resp BP Pulse Ox 99.1 F 84 16 185/94 H 97 03/11/18 17:38 03/11/18 17:38 03/11/18 17:38 03/11/18 17:38 03/11/18 17:38 Doctor's Discharge - Discharge Referrals: GERRY DONAHUE MD [Primary Care Provider] - Follow up as needed
[2018-03-11 18:10] LABS: ABSOLUTE BASOPHILS # (AUTO) 0.1 10^3/uL (0.0-0.2); ABSOLUTE EOSINOPHILS # (AUTO) 0.1 10^3/uL (0.0-0.6); ABSOLUTE LYMPHOCYTES (AUTO) 3.4 10^3/uL (0.5-4.7); ABSOLUTE NEUT (AUTO) 4.2 10^3/uL (1.7-8.2); BASOPHILS % (AUTO) 0.7 % (0-2); EOSINOPHILS % (AUTO) 0.8 % (0-6); HEMATOCRIT 35.1 % (36.0-47.0); HEMOGLOBIN 12.4 g/dL (12.0-15.5); LYMPHOCYTES % (AUTO) 38.8 % (13-45); MEAN CORPUSCULAR HEMOGLOBIN 26.5 pg (27.0-33.4); MEAN CORPUSCULAR HGB CONC 35.3 g/dL (32.0-36.0); MEAN CORPUSCULAR VOLUME 75 fl (80-97); MONOCYTES % (AUTO) 11.7 % (3-13); PLATELET COUNT 274 10^3/uL (150-450); RED BLOOD COUNT 4.67 10^6/uL (3.72-5.28); RED CELL DISTRIBUTION WIDTH 16.8 % (11.5-14.0); TOTAL CELLS COUNTED % (AUTO) 100 %; WHITE BLOOD COUNT 8.8 10^3/uL (4.0-10.5)
--- NOTE | 2018-03-11 18:37 | RADIOLOGY REPORT (SQ) ---
EXAM DESCRIPTION: CHEST 2 VIEWS COMPLETED DATE/TIME: 03/11/2018 6:26 pm REASON FOR STUDY: CP COMPARISON: 02/16/2018 EXAM PARAMETERS: NUMBER OF VIEWS: two views TECHNIQUE: Digital Frontal and Lateral radiographic views of the chest acquired. RADIATION DOSE: NA LIMITATIONS: none FINDINGS: LUNGS AND PLEURA: No opacities, masses or pneumothorax. No pleural effusion. MEDIASTINUM AND HILAR STRUCTURES: No masses or contour abnormalities. HEART AND VASCULAR STRUCTURES: Heart normal size. No evidence for failure. BONES: No acute findings. HARDWARE: None in the chest. OTHER: No other significant finding. IMPRESSION: NO ACUTE RADIOGRAPHIC FINDING IN THE CHEST. TECHNICAL DOCUMENTATION: JOB ID: [id number] [employer]- All Rights Reserved Reading location - IP/workstation name: [email or web address]
[2018-03-11 19:21] LABS: ALANINE AMINOTRANSFERASE 43 U/L (9-52); ALKALINE PHOSPHATASE 69 U/L (38-126); ANION GAP 12 (5-19); ASPARTATE AMINO TRANSFERASE 42 U/L (14-36); BILIRUBIN,DIRECT 0.3 mg/dL (0.0-0.4); BILIRUBIN,TOTAL 0.3 mg/dL (0.2-1.3); BLOOD UREA NITROGEN 13 mg/dL (7-20); CALCIUM 9.3 mg/dL (8.4-10.2); CARBON DIOXIDE 28 mmol/L (22-30); CHLORIDE 107 mmol/L (98-107); GLUCOSE 128 mg/dL (75-110); POTASSIUM 3.9 mmol/L (3.6-5.0); SODIUM 147.1 mmol/L (137-145); TOTAL PROTEIN 7.5 g/dL (6.3-8.2)
--- NOTE | 2018-03-11 19:44 | EKG REPORT ---
SEVERITY:- BORDERLINE ECG - SINUS RHYTHM LVH BY VOLTAGE : Confirmed by: Beata Beck MD 11-Mar-2018 19:43:20
--- NOTE | 2018-03-11 20:10 | ER Document Report ---
ED General - General Chief Complaint: High Blood Pressure Stated Complaint: BLOOD PRESSURE PROBLEMS Time Seen by Provider: 03/11/18 17:45 Mode of Arrival: Ambulatory Notes: Patient is a 42 year old female with a past medical history of hypertension and morbid obesity who presents with asymptomatic hypertension. The patient reports that she has had intermittent stabbing pain diffusely in her chest worsened by coughing or moving but that this pain has been present for the 6 previous days not including today. She comes to the emergency department today at the request of her primary care doctor due to her uncontrolled hypertension and previous chest discomfort. She is taking amlodipine and losartan for her blood pressure. No recent changes in her blood pressure medications. She denies any shortness of breath, nausea, vomiting, pain in her arms, jaw or back. She denies any chest pain or any symptoms of any kind currently. She states her only concern is regarding her blood pressure. TRAVEL OUTSIDE OF THE [place] IN LAST 30 DAYS: No - Related Data Allergies/Adverse Reactions: latex [Latex] Allergy (Severe, Verified 03/11/18 17:21) red blisters Shellfish * [Shellfish] Allergy (Severe, Verified 03/11/18 17:21) throat swells sulfamethoxazole [From Bactrim] Allergy (Mild, Verified 03/11/18 17:21) Generalized rash,swells tongue trimethoprim [From Bactrim] Allergy (Mild, Verified 03/11/18 17:21) Generalized rash,tongue swells calcium carbonate [From Tums] Adverse Reaction (Severe, Verified 03/11/18 17:21) severe abdominal pain surgical tape Allergy (Severe, Uncoded 03/11/18 17:21) Generalized Itching,blisters iodine Allergy (Mild, Uncoded 03/11/18 17:21) stops hair growth IVP DYE Allergy (Uncoded 03/11/18 17:21) Past Medical History - General Information source: Patient - Social History Smoking Status: Never Smoker Chew tobacco use (# tins/day): No Frequency of alcohol use: None Drug Abuse: None Lives with: Family Family History: Reviewed & Not Pertinent Patient has suicidal ideation: No Patient has homicidal ideation: No - Past Medical History Cardiac Medical History: Reports: Hx Hypertension - MEDICATED Denies: Hx Coronary Artery Disease, Hx Heart Attack Pulmonary Medical History: Reports: Hx Pneumonia Denies: Hx Asthma, Hx Bronchitis, Hx COPD Neurological Medical History: Denies: Hx Cerebrovascular Accident, Hx Seizures Endocrine Medical History: Reports: Hx Diabetes Mellitus Type 2 Renal/ Medical History: Denies: Hx Peritoneal Dialysis GI Medical History: Reports: Hx Gastroesophageal Reflux Disease, Hx Irritable Bowel. Denies: Hx Hepatitis, Hx Hiatal Hernia, Hx Ulcer Musculoskeletal Medical History: Reports Hx Arthritis - back /aracelis osteoarthritis knees/TOES,PLANTER FASCITIS,HEEL SPURS,ARACELIS BUNIONS Psychiatric Medical History: Reports: Hx Post Traumatic Stress Disorder Infectious Medical History: Denies: Hx Hepatitis Past Surgical History: Reports: Hx Section - X3. Denies: Hx Hysterectomy, Hx Mastectomy, Hx Open Heart Surgery, Hx Pacemaker - Immunizations Hx Diphtheria, Pertussis, Tetanus Vaccination: No Hx Pneumococcal Vaccination: 08/30/12 Review of Systems - Review of Systems Notes: Constitutional: Negative for fever. HENT: Negative for sore throat. Eyes: Negative for visual changes. Cardiovascular: Negative for chest pain. Respiratory: Negative for shortness of breath. Gastrointestinal: Negative for abdominal pain, vomiting or diarrhea. Genitourinary: Negative for dysuria. Musculoskeletal: Negative for back pain. Skin: Negative for rash. Neurological: Negative for headaches, weakness or numbness. 10 point ROS negative except as marked above and in HPI. Physical Exam - Vital signs Vitals: Temp Pulse Resp BP Pulse Ox 99.1 F 84 16 185/94 H 97 03/11/18 17:38 03/11/18 17:38 03/11/18 17:38 03/11/18 17:38 03/11/18 17:38 Interpretation: Hypertensive Notes: PHYSICAL EXAMINATION: GENERAL: Well-appearing, well-nourished and in no acute distress. HEAD: Atraumatic, normocephalic. EYES: Pupils equal round and reactive to light, extraocular movements intact, sclera anicteric, conjunctiva are normal. ENT: nares patent, oropharynx clear without exudates. Moist mucous membranes. NECK: Normal range of motion, supple without lymphadenopathy LUNGS: Breath sounds clear to auscultation bilaterally and equal. No wheezes rales or rhonchi. HEART: Regular rate and rhythm without murmurs ABDOMEN: Soft, nontender, normoactive bowel sounds. No guarding, no rebound. No masses appreciated. EXTREMITIES: Normal range of motion, no pitting or edema. No cyanosis. NEUROLOGICAL: No focal neurological deficits. Moves all extremities spontaneously and on command. PSYCH: Normal mood, normal affect. SKIN: Warm, Dry, normal turgor, no rashes or lesions noted. Course - Re-evaluation Re-evalutation: 03/11/18 20:08 Presentation of asymptomatic hypertension. Patient reports that she had had some sharp chest pain over the last 1 week but none today. Low clinical suspicion for ACS given clinical history, exam, EKG without ST elevations or depressions, and negative initial troponin. HEART score less than or equal to 3. PE also seems unlikely given clinical history, absence of tachycardia or dyspnea. Patient is PERC criteria negative. CXR without evidence of pneumothorax or pneumonia. No widened mediastinum. Aortic dissection also seems unlikely given history, symmetric pulses, CXR, and vitals. Patient's blood pressure has actually completely normalized here in the emergency department after she was lying in the bed and got relaxed at 135 over 85. I have encouraged her to follow with her general doctor regarding her hypertension and of also reviewed how to properly take blood pressures at home. At this time will discharge with return precautions and follow-up recommendations. Verbal discharge instructions given a the bedside and opportunity for questions given. Medication warnings reviewed. Patient is in agreement with this plan and has verbalized understanding of return precautions and the need for primary care follow-up in the next 24-72 hours. - Vital Signs Vital signs: Temp Pulse Resp BP Pulse Ox 98.1 F 84 19 145/83 H 95 03/11/18 20:31 03/11/18 17:38 03/11/18 20:31 03/11/18 20:31 03/11/18 20:31 - Laboratory Result Diagrams: 03/11/18 17:45 03/11/18 17:46 Laboratory results interpreted by me: 03/11/18 03/11/18 17:45 17:46 Hct 35.1 L MCV 75 L MCH 26.5 L RDW 16.8 H Sodium 147.1 H Glucose 128 H AST 42 H - Diagnostic Test Radiology reviewed: Image reviewed, Reports reviewed Radiology results interpreted by me: 03/11/18 20:09 Chest x-ray: No acute infiltrate or pneumothorax - EKG Interpretation by Me Additional EKG results interpreted by me: 03/11/18 20:09 Sinus rhythm. Rate 84. No ST elevations or depressions. QTC is 464. Discharge - Discharge Clinical Impression: Essential hypertension, Chest discomfort Condition: Good Disposition: HOME, SELF-CARE Additional Instructions: You were seen today for blood pressure that was high. This is a long-term risk factor for multiple medical problems including heart attack and stroke. However, the blood pressure in of itself will not cause you to have an acute stroke or heart attack over the course of just several days or weeks. You need to have a gradual reduction of your blood pressure back to normal levels over the next several months in conjunction with your primary care physician. Return if you develop headache, weakness, numbness, chest pain, pass out, or have any other symptoms that are concerning to you. Referrals: GERRY DONAHEU MD [Primary Care Provider] - Follow up as needed
[2018-03-11 20:35] VITALS: BP 145/83
== END 2018-03-11 20:34 | disposition home or self-care (01) ==
LOC: ER 17:21
DX: I10 Essential (primary) hypertension (principal); R07.89 Other chest pain; E11.9 Type 2 diabetes mellitus without complications; K21.9 Gastro-esophageal reflux disease without esophagitis; M19.90 Unspecified osteoarthritis, unspecified site; E66.01 Morbid (severe) obesity due to excess calories; Z68.43 Body mass index [BMI] 50.0-59.9, adult; Z91.013 Allergy to seafood; Z88.8 Allergy status to other drugs, medicaments and biological substances; Z91.040 Latex allergy status; Z91.041 Radiographic dye allergy status
CPT/HCPCS: 93005; 36415; 85025; 80053; 84484; 71046; 93010; A9270; 99284

== ENCOUNTER → 2018-03-23 | Outpatient (CLI) | payer MEDICARE, MEDICAID ==
--- NOTE | 2018-03-23 09:30 | WOMENS IMAGING REPORT ---
EXAM DESCRIPTION: 3D SCREENING MAMMO BILAT COMPLETED DATE/TIME: 03/23/2018 7:38 am REASON FOR STUDY: SCREENING MAMMO Z12.31 ENCNTR SCREEN MAMMOGRAM FOR MALIGNANT NEOPLASM OF JAYNA COMPARISON: January 2017 and November 2015 TECHNIQUE: Standard craniocaudal and mediolateral oblique views of each breast recorded using digita l acquisition and breast tomosynthesis. LIMITATIONS: None. FINDINGS: Findings present which are benign by mammographic criteria. No suspicious masses, calcifi cations or architectural distortion. Pertinent benign findings: Stable small right breast nodules. Read with the assistance of CAD. .[facility] - R2 Cenova Version 1.3 .[facility] - R2 Cenova Version 1.3 .[facility] - R2 Cenova Version 2.4 .[facility] - R2 Cenova Version 2.4 .[facility] - R2 Press [employer] Maker Version 9.2 Benign mammographic findings may include one or more of the following: Smooth masses, popcorn/rim/co arse calcifications, asymmetries, post-procedure changes, and lesions with long-standing stability. IMPRESSION: BENIGN MAMMOGRAPHIC FINDINGS. BIRADS 2 BREAST DENSITY: b. There are scattered areas of fibroglandular density. BIRAD: 2 BENIGN FINDING(S) RECOMMENDATION: RECOMMENDATION: ROUTINE SCREENING COMMENT: The patient has been notified of the results by letter per MQSA requirements. Additional no tification policies are in place for contacting patient with suspicious or incomplete findings. Quality ID #[id number]: The [employer] recommends an annual screening mammogram for women aged 40 years or over. This facility utilizes a reminder system to ensure that all patients receive reminder letters, and/or direct phone calls for appointments. This includes reminders for routine scr eening mammograms, diagnostic mammograms, or other Breast Imaging Interventions when appropriate. Th is patient will be placed in the appropriate reminder system. The [employer] (ACR) has developed recommendations for screening MRI of the breast s in certain patient populations, to be used in conjunction with mammography. Breast MRI surveillanc e may be appropriate for women with more than 20% lifetime risk of developing breast cancer as deter mined by genetic testing, significant family history of the disease, or history of mantle radiation f or Hodgkins Disease. ACR Practice Guidelines 2008. DBT Technology DBT is a type of tomographic mammography. With conventional mammography, overlapping breast tissue ma y make lesions difficult to detect, even with good compression. DBT uses an x-ray tube that rotates a round the breast, taking images at different angles. These images are then combined to create thin sl ices of the breast that the radiologist can view as a 3D reconstruction. The Hologic unit can perform full-field digital mammograms (2D imaging); or DBT (3D imaging); or both, in a combination mode that quickly performs both the mammogram and the tomosynthesis scan while the breast is still compressed. PQRS 6045F: Fluoroscopic imaging is not utilized for breast tomosynthesis. TECHNICAL DOCUMENTATION: FINDING NUMBER: (1) ASSESSMENT: (1) JOB ID: [id number] [employer]- All Rights Reserved Reading location - IP/workstation name: [email or web address]
== END ==
LOC: WI 07:16
PROVIDERS: ATTEND Internal Medicine
DX: Z12.31 Encounter for screening mammogram for malignant neoplasm of breast (principal)
CPT/HCPCS: 77063; 77067

== ENCOUNTER → 2019-03-24 | Outpatient (CLI) | payer MEDICARE, MEDICAID ==
--- NOTE | 2019-03-24 11:40 | WOMENS IMAGING REPORT ---
EXAM DESCRIPTION: BILAT SCREENING MAMMO W/CAD COMPLETED DATE/TIME: 03/24/2019 9:01 am REASON FOR STUDY: Z12.31 ENCOUNTER FOR SCREENING MAMMOGRAM FOR MALIGNANT NEOPLASM OF BREAST Z12.31 ENCNTR SCREEN MAMMOGRAM FOR MALIGNANT NEOPLASM OF JAYNA COMPARISON: 03/23/2018 and 02/18/2017. EXAM PARAMETERS: Standard craniocaudal and mediolateral oblique views of each breast recorded using digital acquisition. Read with the assistance of CAD. .[facility] - [employer] Version 9.2 LIMITATIONS: None. FINDINGS: Findings present which are benign by mammographic criteria. No suspicious masses, calcifi cations or architectural distortion. Pertinent benign findings: Stable circumscribed nodules in the upper-outer right breast. Benign mammographic findings may include one or more of the following: Smooth masses, popcorn/rim/co arse calcifications, asymmetries, post-procedure changes, and lesions with long-standing stability. IMPRESSION: BENIGN MAMMOGRAPHIC FINDINGS. BIRADS 2 BREAST DENSITY: b. There are scattered areas of fibroglandular density. BIRAD: ASSESSMENT: 2 BENIGN FINDING(S) RECOMMENDATION: ROUTINE SCREENING COMMENT: The patient has been notified of the results by letter per MQSA requirements. Additional no tification policies are in place for contacting patient with suspicious or incomplete findings. Quality ID #225: The [employer] recommends an annual screening mammogram for women aged 40 years or over. This facility utilizes a reminder system to ensure that all patients receive reminder letters, and/or direct phone calls for appointments. This includes reminders for routine scr eening mammograms, diagnostic mammograms, or other Breast Imaging Interventions when appropriate. Th is patient will be placed in the appropriate reminder system. TECHNICAL DOCUMENTATION: FINDING NUMBER: (1) ASSESSMENT: (1) JOB ID: [id number] [employer]- All Rights Reserved Reading location - IP/workstation name: [email or web address]
== END ==
LOC: WI 08:32
PROVIDERS: ATTEND Internal Medicine
DX: Z12.31 Encounter for screening mammogram for malignant neoplasm of breast (principal)
CPT/HCPCS: 77067

== ENCOUNTER 2020-04-07 08:26 | Emergency (ER) | payer MEDICARE, MEDICAID ==
--- NOTE | 2020-04-07 09:35 | ER Document Report ---
ED General - General Chief Complaint: Memory Loss Stated Complaint: ARM PAIN Time Seen by Provider: 04/07/20 09:03 Primary Care Provider: GERRY DONAHUE MD [Primary Care Provider] - Follow up as needed TRAVEL OUTSIDE OF THE [place] IN LAST 30 DAYS: No - HPI Notes: Chief complaint: Multiple concerns History of present illness: This is a 44-year-old female with history of steroid-dependent asthma, hypertension, functional bowel syndrome and chronic anxiety presenting today with numerous concerns which have evolved over the last 2 weeks. Patient called EMS for transport here and says that she thinks she might of had a stroke 2 weeks ago. When questioned carefully regarding her symptoms she denies any focal deficit but says she still has some slight difficulty concentrating and she thought she might of had a stroke. She denies headache, nausea vomiting. She denies any change in speech, swallowing or eyesight. She says she sometimes feels a little unsteady on her feet and dizzy. This is most noticeable when she goes from a sitting to a standing position. - Related Data Allergies/Adverse Reactions: latex [Latex] Allergy (Severe, Verified 04/07/20 08:32) red blisters Shellfish * [Shellfish] Allergy (Severe, Verified 04/07/20 08:32) throat swells sulfamethoxazole [From Bactrim] Allergy (Mild, Verified 04/07/20 08:32) Generalized rash,swells tongue trimethoprim [From Bactrim] Allergy (Mild, Verified 04/07/20 08:32) Generalized rash,tongue swells calcium carbonate [From Tums] Adverse Reaction (Severe, Verified 04/07/20 08:32) severe abdominal pain surgical tape Allergy (Severe, Uncoded 04/07/20 08:32) Generalized Itching,blisters iodine Allergy (Mild, Uncoded 04/07/20 08:32) stops hair growth IVP DYE Allergy (Uncoded 04/07/20 08:32) Past Medical History - General Information source: Patient, [facility] Records - Social History Smoking Status: Never Smoker Chew tobacco use (# tins/day): No Frequency of alcohol use: None Drug Abuse: None Lives with: Family Family History: Reviewed & Not Pertinent Patient has homicidal ideation: No - Past Medical History Cardiac Medical History: Reports: Hx Hypertension - MEDICATED Denies: Hx Coronary Artery Disease, Hx Heart Attack Pulmonary Medical History: Reports: Hx Asthma, Hx Pneumonia Denies: Hx Bronchitis, Hx COPD Neurological Medical History: Denies: Hx Cerebrovascular Accident, Hx Seizures Endocrine Medical History: Reports: Hx Diabetes Mellitus Type 2 Renal/ Medical History: Denies: Hx Peritoneal Dialysis Malignancy Medical History: Reports: None GI Medical History: Reports: Hx Gastroesophageal Reflux Disease, Hx Irritable Bowel. Denies: Hx Hepatitis, Hx Hiatal Hernia, Hx Ulcer Musculoskeletal Medical History: Reports Hx Arthritis - back /aracelis osteoarthritis knees/TOES,PLANTER FASCITIS,HEEL SPURS,ARACELIS BUNIONS Psychiatric Medical History: Reports: Hx Post Traumatic Stress Disorder Infectious Medical History: Denies: Hx Hepatitis Past Surgical History: Reports: Hx Section - X3. Denies: Hx Hysterectomy, Hx Mastectomy, Hx Open Heart Surgery, Hx Pacemaker - Immunizations Hx Diphtheria, Pertussis, Tetanus Vaccination: No Hx Pneumococcal Vaccination: 08/30/12 Review of Systems - Review of Systems Notes: Constitutional: Negative for fever. HENT: Negative for sore throat. Eyes: Negative for visual changes. Cardiovascular: Occasional fleeting tightness in her chest without radiation. Respiratory: Intermittent wheezing. Gastrointestinal: Negative for abdominal pain, vomiting or diarrhea. Genitourinary: Negative for dysuria. Musculoskeletal: Negative for back pain. Skin: Negative for rash. Neurological: As per HPI. 10 point ROS negative except as marked above and in HPI. Physical Exam - Vital signs Vitals: Resp 10 L 04/07/20 09:42 - Notes Notes: GENERAL: Obese middle-aged female appearing in no acute distress. SKIN: Good turgor no rashes. HEAD: Normocephalic atraumatic. EYES: PERRLA. EOMI. Conjunctivae and sclerae clear. EARS: CANALS AND TMS CLEAR. NOSE: CLEAR. MOUTH: Moist mucosa. Good dentition. No stridor or edema. No drooling. NECK: Supple. No masses or thyromegaly. No adenopathy. Carotids 2+ without bruits. No JVD. BACK: Symmetrical without tenderness. CHEST: Respirations unlabored. Breath sounds clear and symmetrical. HEART: Regular rhythm. No murmur gallop or rub. ABDOMEN: Obese. Soft nontender without masses, organomegaly or rebound. Bowel sounds normally active. No bruits. GENITALIA: Deferred. EXTREMITIES: No edema. No calf tenderness. Cap refill less than 1.5 seconds. Dorsalis pedis and posterior tibial pulses 3+ and symmetrical. NEUROLOGICAL: GCS 15. Alert and oriented x3. Normal gait. Fluent speech. Cranial nerves II through XII intact. Sensorimotor and cerebellar normal. Normal tone. PSYCHIATRIC: Appropriate affect. Course - Re-evaluation Re-evalutation: 04/07/20 12:09 Patient says she "just has not felt right" for about 2 weeks. She thought she possibly had a stroke but on questioning her she really does not have any focal neurologic symptoms. I also did not see any clear-cut abnormalities on her neurologic exam. She has normal noncontrast head scan here. Her EKG shows a sinus bradycardia. When I had her get up and walk for us she is not having any orthostatic drop in her blood pressure and her pulse rises appropriately. Her troponin is normal. Her chemistry profile and CBC are normal. Her chest x-ray is normal. This lady is on quite a lot of medication. I think probably she is having some adverse effects of polypharmacy. She appears very stable for outpatient follow- up on this with her primary care physicians yet she has an appointment within the next 48 hours. I explained to her that she can return here for any new or worsening symptoms which she should take up this issue with her primary care doctor. Findings, clinical impression and plan of treatment have been discussed with patient/family. Understanding of current findings and recommendations has been acknowledged by them and there is agreement regarding disposition and follow-up. - Vital Signs Vital signs: Temp Pulse Resp BP Pulse Ox 56 L 16 116/65 97 04/07/20 10:00 04/07/20 11:01 04/07/20 11:01 04/07/20 11:01 - Laboratory Result Diagrams: 04/07/20 10:00 04/07/20 10:00 Laboratory results interpreted by me: 04/07/20 04/07/20 04/07/20 10:00 10:00 10:00 MCV 77 L MCH 26.8 L RDW 16.1 H Chloride 109 H Glucose 124 H Urine Protein 30 H Salicylates < 1.0 L - EKG Interpretation by Me Additional EKG results interpreted by me: 04/07/20 12:08 Twelve-lead EKG from 0955 hrs. reviewed contemporaneously by me demonstrating sinus bradycardia and left ventricular hypertrophy. Patient has a heart rate of 48. Her QRS axis is -1 degree. She has no acute ST/T wave changes. Intervals are normal. Impression sinus bradycardia. Indication for current study vertigo. Discharge - Discharge Clinical Impression: Vertigo Condition: Stable Disposition: HOME, SELF-CARE Additional Instructions: Return here as needed for new or worsening symptoms. See your primary care doctor soon as possible to discuss your symptoms and to review current medications to determine if your treatment plan can be simplified with possible elimination of some of the medication. Referrals: GERRY DONAHUE MD [Primary Care Provider] - Follow up as needed
--- NOTE | 2020-04-07 10:14 | RADIOLOGY REPORT (SQ) ---
EXAM DESCRIPTION: CHEST SINGLE VIEW IMAGES COMPLETED DATE/TIME: 04/07/2020 9:59 am REASON FOR STUDY: CP COMPARISON: 03/11/2018 EXAM PARAMETERS: NUMBER OF VIEWS: One view. TECHNIQUE: Single frontal radiographic view of the chest acquired. RADIATION DOSE: NA LIMITATIONS: Body habitus. Portable technique. FINDINGS: LUNGS AND PLEURA: No opacities, masses or pneumothorax. No pleural effusion. MEDIASTINUM AND HILAR STRUCTURES: No masses. Contour normal. HEART AND VASCULAR STRUCTURES: Heart normal in size. Normal vasculature. BONES: No acute findings. HARDWARE: None in the chest. OTHER: No other significant finding. IMPRESSION: NO ACUTE RADIOGRAPHIC FINDING IN THE CHEST. TECHNICAL DOCUMENTATION: JOB ID: [id number] 2010 [employer]- All Rights Reserved Reading location - IP/workstation name: [email or web address]
[2020-04-07 10:22] LABS: ABSOLUTE NEUT (AUTO) 4.1 10^3/uL (1.7-8.2); BASOPHILS % (AUTO) 0.5 % (0-2); EOSINOPHILS % (AUTO) 0.3 % (0-6); HEMATOCRIT 36.7 % (36.0-47.0); HEMOGLOBIN 12.8 g/dL (12.0-15.5); LYMPHOCYTES % (AUTO) 43.3 % (13-45); MEAN CORPUSCULAR HEMOGLOBIN 26.8 pg (27.0-33.4); MEAN CORPUSCULAR VOLUME 77 fl (80-97); MONOCYTES % (AUTO) 10.7 % (3-13); PLATELET COUNT 283 10^3/uL (150-450); RED BLOOD COUNT 4.79 10^6/uL (3.72-5.28); RED CELL DISTRIBUTION WIDTH 16.1 % (11.5-14.0); SEGMENTED NEUTROPHILS % (AUTO) 45.2 % (42-78); TOTAL CELLS COUNTED % (AUTO) 100 %; WHITE BLOOD COUNT 9.1 10^3/uL (4.0-10.5)
[2020-04-07 10:33] LABS: APPEARANCE,URINE CLEAR; BILIRUBIN,URINE NEGATIVE (NEGATIVE); COLOR,URINE YELLOW; GLUCOSE, URINE NEGATIVE (NEGATIVE); KETONES,URINE NEGATIVE (NEGATIVE); PROTEIN,URINE 30 mg/dL (NEGATIVE); URINE SPECIFIC GRAVITY 1.031; UROBILINOGEN,URINE NEGATIVE mg/dL (<2.0)
[2020-04-07 10:40] LABS: URINE AMPHETAMINES SCREEN NEGATIVE; URINE BARBITURATES SCREEN NEGATIVE; URINE BENZODIAZEPINES SCREEN NEGATIVE; URINE COCAINE SCREEN NEGATIVE; URINE MARIJUANA (THC) SCREEN NEGATIVE; URINE METHADONE SCREEN NEGATIVE; URINE PHENCYCLIDINE SCREEN NEGATIVE
[2020-04-07 10:44] LABS: ALBUMIN 4.2 g/dL (3.5-5.0); ALKALINE PHOSPHATASE 72 U/L (38-126); ANION GAP 7 (5-19); ASPARTATE AMINO TRANSFERASE 22 U/L (14-36); BILIRUBIN,TOTAL 0.6 mg/dL (0.2-1.3); BLOOD UREA NITROGEN 14 mg/dL (7-20); CALCIUM 9.3 mg/dL (8.4-10.2); CARBON DIOXIDE 22 mmol/L (22-30); CHLORIDE 109 mmol/L (98-107); GLUCOSE 124 mg/dL (75-110); TOTAL PROTEIN 7.6 g/dL (6.3-8.2)
[2020-04-07 10:46] LABS: ALCOHOL < 10 mg/dL (NONE DETECTED); SALICYLATE < 1.0 mg/dL (2.0-20.0)
--- NOTE | 2020-04-07 11:02 | RADIOLOGY REPORT (SQ) ---
EXAM DESCRIPTION: CT HEAD WITHOUT IMAGES COMPLETED DATE/TIME: 04/07/2020 10:17 am REASON FOR STUDY: ams COMPARISON: None. TECHNIQUE: Axial images acquired through the brain without intravenous contrast. Images reviewed wi th bone, brain and subdural windows. Additional sagittal and coronal reconstructions were generated. Images stored on PACS. All CT scanners at this facility use dose modulation, iterative reconstruction, and/or weight based d osing when appropriate to reduce radiation dose to as low as reasonably achievable (ALARA). [facility]: Dose Right [facility]: CareDose [facility]: Dose Right [facility]: Teradose 4D [facility]: [employer] RADIATION DOSE: CT Rad equipment meets quality standard of care and radiation dose reduction techniq ues were employed. CTDIvol: 53.2 mGy. DLP: 991 mGy-cm. mGy. LIMITATIONS: None. FINDINGS: VENTRICLES: Normal size and contour. CEREBRUM: No masses. No hemorrhage. No midline shift. No evidence for acute infarction. Normal gra y/white matter differentiation. No areas of low density in the white matter. CEREBELLUM: No masses. No hemorrhage. No alteration of density. No evidence for acute infarction. EXTRAAXIAL SPACES: No fluid collections. No masses. ORBITS AND GLOBE: No intra- or extraconal masses. Normal contour of globe without masses. CALVARIUM: No fracture. PARANASAL SINUSES: No fluid or mucosal thickening. SOFT TISSUES: No mass or hematoma. OTHER: No other significant finding. IMPRESSION: NORMAL BRAIN CT WITHOUT CONTRAST. EVIDENCE OF ACUTE STROKE: NO. COMMENT: Quality ID # [id number]: Final reports with documentation of one or more dose reduction techniques (e.g., Automated exposure control, adjustment of the mA and/or kV according to patient size, use of iterative reconstruction technique) TECHNICAL DOCUMENTATION: JOB ID: [id number] 2010 [employer]- All Rights Reserved Reading location - IP/workstation name: [email or web address]
[2020-04-07 12:14] VITALS: BP 129/84
--- NOTE | 2020-04-07 14:58 | EKG REPORT ---
SEVERITY:- ABNORMAL ECG - SINUS BRADYCARDIA LEFT VENTRICULAR HYPERTROPHY : Confirmed by: Jaycob Dickinson MD 07-Apr-2020 14:58:30
== END 2020-04-07 12:30 | disposition home or self-care (01) ==
LOC: ER 08:26
DX: R42 Dizziness and giddiness (principal); R41.3 Other amnesia; F41.9 Anxiety disorder, unspecified; J45.909 Unspecified asthma, uncomplicated; I10 Essential (primary) hypertension; Z88.8 Allergy status to other drugs, medicaments and biological substances; Z88.2 Allergy status to sulfonamides; E11.9 Type 2 diabetes mellitus without complications; Z79.899 Other long term (current) drug therapy
CPT/HCPCS: 36415; 70450; 71045; 80053; 80307; 81001; 83735; 84484; 85025; 93005; 93010; 99285

== ENCOUNTER → 2020-04-11 | Outpatient (CLI) | payer MEDICARE, MEDICAID ==
--- NOTE | 2020-04-11 10:15 | WOMENS IMAGING REPORT ---
EXAM DESCRIPTION: BILAT SCREENING MAMMO W/CAD IMAGES COMPLETED DATE/TIME: 04/11/2020 9:52 am REASON FOR STUDY: Z12.31 ENCNTR SCREEN MAMMOGRAM FOR MALIGNANT NEOPLASM OF BREAST Z12.31 ENCNTR SCR EEN MAMMOGRAM FOR MALIGNANT NEOPLASM OF JAYNA COMPARISON: [id number] EXAM PARAMETERS: Standard craniocaudal and mediolateral oblique views of each breast recorded using digital acquisition. Read with the assistance of CAD. .[facility] - [employer] Professor Version 9.2 LIMITATIONS: None. FINDINGS: No suspicious masses, suspicious calcifications or architectural distortion. No areas of c oncern. IMPRESSION: NEGATIVE MAMMOGRAM. BIRADS 1 BREAST DENSITY: b. There are scattered areas of fibroglandular density. BIRAD: ASSESSMENT: 1 NEGATIVE RECOMMENDATION: ROUTINE SCREENING COMMENT: The patient has been notified of the results by letter per MQSA requirements. Additional no tification policies are in place for contacting patient with suspicious or incomplete findings. Quality ID #225: The [employer] recommends an annual screening mammogram for women aged 40 years or over. This facility utilizes a reminder system to ensure that all patients receive reminder letters, and/or direct phone calls for appointments. This includes reminders for routine scr eening mammograms, diagnostic mammograms, or other Breast Imaging Interventions when appropriate. Th is patient will be placed in the appropriate reminder system. TECHNICAL DOCUMENTATION: FINDING NUMBER: (1) ASSESSMENT: (1) JOB ID: [id number] 2010 [employer]- All Rights Reserved Reading location - IP/workstation name: [email or web address]
== END ==
LOC: WI 09:10
PROVIDERS: ATTEND Internal Medicine
DX: Z12.31 Encounter for screening mammogram for malignant neoplasm of breast (principal)
CPT/HCPCS: 77067

== ENCOUNTER 2020-05-06 12:45 | Emergency (ER) | payer MEDICARE, MEDICAID ==
[2020-05-06] MEDS ORDERED: LORAZEPAM INJ 2 MG/1 ML VIAL IM ONE (13:09)
[2020-05-06] MEDS ORDERED: HALOPERIDOL LACTATE INJ 5 MG/1 ML VIAL IM ONE (13:10)
--- NOTE | 2020-05-06 13:13 | ER Document Report ---
ED General - General Mode of Arrival: Medic Information source: Patient, Emergency Med Personnel TRAVEL OUTSIDE OF THE [place] IN LAST 30 DAYS: No - HPI Onset: This morning Onset/Duration: Sudden Quality of pain: No pain Severity: None Pain Level: Denies Associated symptoms: Other - dehydration <ALVAREZ KOWALSKI JR - Last Filed: 05/06/20 16:51> <GLORIA QUINTERO - Last Filed: 05/07/20 19:24> - General Stated Complaint: PSYCH EVAL Time Seen by Provider: 05/06/20 13:08 Primary Care Provider: GERRY DONAHUE MD [Primary Care Provider] - Follow up as needed Notes: -Notes by Dr. Rudolph Wheatley 1 month prior. Notes: Chief complaint: Multiple concerns History of present illness: This is a 44-year-old female with history of steroid-dependent asthma, hypertension, functional bowel syndrome and chronic anxiety presenting today with numerous concerns which have evolved over the last 2 weeks. Patient called EMS for transport here and says that she thinks she might of had a stroke 2 weeks ago. When questioned carefully regarding her symptoms she denies any focal deficit but says she still has some slight difficulty concentrating and she thought she might of had a stroke. She denies headache, nausea vomiting. She denies any change in speech, swallowing or eyesight. She says she sometimes feels a little unsteady on her feet and dizzy. This is most noticeable when she goes from a sitting to a standing position. - Related Data 05/06/20 13:32 - ED Nursing Note by TRE WINTERS [facility] Num: [id number] : 1975 Patient Age: 44 pt arrives to Er today via EMS due to EMS reports pt barricaded herself in her home with bibles all over singing giorgi, EMS reports pt having bizarre behaviors, EMS reports yesterday pt was walking around her apartment complex with only a bra on, pt is giving wrong birthdate, pt stating everyone is lying to her and she cannot trust anybody. pt is argumentative and challenging commands. pt will is refusing to follow protocols, Dr. Kowalski signs IVC paperwork due to pt is not in touch with reality and danger to self and others. MY NOTES 44 year old black female arrives via EMS. Patient advises she was dehydrated for the last 2 to 3 days and has a dry mouth. She would like some ice water please. She otherwise has no complaints. She denies running around her apartment with no clues on and denies any headache fever chills cough cold skin lesions drug use psychiatric problems. Prior visits include chest pain blood pressure problems arm pain and headache problems. per Pattie discussed case with patient and evidently patient has schizoaffective schizophrenia and was followed by an [facility] but none now. She was placed on Lexapro 3-month supply. Daughter reports she knew her mother fell and hit her head. Today she did not recognize the daughter or the grandchildren and her house was in poor condition. She told Sue that she did not think patient could take care of herself. (ALVAREZ KOWALSKI JR) - Related Data Allergies/Adverse Reactions: latex [Latex] Allergy (Severe, Verified 04/07/20 08:32) red blisters Shellfish * [Shellfish] Allergy (Severe, Verified 04/07/20 08:32) throat swells sulfamethoxazole [From Bactrim] Allergy (Mild, Verified 04/07/20 08:32) Generalized rash,swells tongue trimethoprim [From Bactrim] Allergy (Mild, Verified 04/07/20 08:32) Generalized rash,tongue swells Iodinated Contrast Media Allergy (Unknown, Verified 05/07/20 10:41) calcium carbonate [From Tums] Adverse Reaction (Severe, Verified 04/07/20 08:32) severe abdominal pain adhesive tape Adverse Reaction (Intermediate, Verified 05/07/20 10:43) Pruritis iodine Adverse Reaction (Intermediate, Verified 05/07/20 10:42) Alopecia Past Medical History - General Information source: Patient, Emergency Med Personnel - Social History Smoking Status: Never Smoker Cigarette use (# per day): No Chew tobacco use (# tins/day): No Smoking Education Provided: No Frequency of alcohol use: None Drug Abuse: Other - denies Lives with: Family Family History: Reviewed & Not Pertinent Patient has suicidal ideation: No Patient has homicidal ideation: No - Past Medical History Cardiac Medical History: Reports: Hx Hypertension - MEDICATED Denies: Hx Coronary Artery Disease, Hx Heart Attack Pulmonary Medical History: Reports: Hx Asthma, Hx Pneumonia Denies: Hx Bronchitis, Hx COPD Neurological Medical History: Denies: Hx Cerebrovascular Accident, Hx Seizures Endocrine Medical History: Reports: Hx Diabetes Mellitus Type 2 Renal/ Medical History: Denies: Hx Peritoneal Dialysis GI Medical History: Reports: Hx Gastroesophageal Reflux Disease, Hx Irritable Bowel. Denies: Hx Hepatitis, Hx Hiatal Hernia, Hx Ulcer Musculoskeletal Medical History: Reports Hx Arthritis - back /aracelis osteoarthritis knees/TOES,PLANTER FASCITIS,HEEL SPURS,ARACELIS BUNIONS Psychiatric Medical History: Reports: Hx Post Traumatic Stress Disorder Infectious Medical History: Denies: Hx Hepatitis Past Surgical History: Reports: Hx Section - X3. Denies: Hx Hysterectomy, Hx Mastectomy, Hx Open Heart Surgery, Hx Pacemaker - Immunizations Hx Diphtheria, Pertussis, Tetanus Vaccination: No Hx Pneumococcal Vaccination: 08/30/12 <ALVAREZ KOWALSKI JR - Last Filed: 05/06/20 16:51> Review of Systems - Review of Systems Constitutional: No symptoms reported EENT: No symptoms reported Cardiovascular: No symptoms reported Respiratory: No symptoms reported Gastrointestinal: No symptoms reported Genitourinary: No symptoms reported Female Genitourinary: No symptoms reported Musculoskeletal: No symptoms reported Skin: No symptoms reported Hematologic/Lymphatic: No symptoms reported Neurological/Psychological: No symptoms reported <ALVAREZ KOWALSKI JR - Last Filed: 05/06/20 16:51> Physical Exam - Vital signs Interpretation: Hypertensive, Febrile - General General appearance: Alert - HEENT Head: Normocephalic, Atraumatic Eyes: Normal Pupils: PERRL Mouth/Lips: Normal Mucous membranes: Normal Pharynx: Normal Neck: Normal - Respiratory Respiratory status: No respiratory distress Chest status: Nontender Breath sounds: Normal Chest palpation: Normal - Cardiovascular Rhythm: Regular Heart sounds: Normal auscultation Murmur: No - Abdominal Inspection: Normal Distension: No distension Bowel sounds: Normal Tenderness: Nontender Organomegaly: No organomegaly - Rectal Hemorrhoids: Other - deferred - Genitourinary Bimanuel exam: Other - deferred - Back Back: Normal - Extremities General upper extremity: Normal inspection General lower extremity: Normal inspection - Neurological Neuro grossly intact: Yes Cognition: Normal Orientation: AAOx4 Cashion Coma Scale Eye Opening: Spontaneous Cashion Coma Scale Verbal: Oriented Emma Coma Scale Motor: Obeys Commands Cashion Coma Scale Total: 15 Speech: Normal Motor strength normal: LUE, RUE, LLE, RLE Sensory: Normal - Psychological Associated symptoms: Paranoid, Restlessness - Skin Skin Temperature: Warm Skin Moisture: Dry <ALVAREZ KOWALSKI JR - Last Filed: 05/06/20 16:51> - Vital signs Vitals: Temp Pulse Resp BP Pulse Ox 100.0 F 84 18 169/74 H 98 05/06/20 12:59 05/06/20 12:59 05/06/20 12:59 05/06/20 12:59 05/06/20 12:59 Course - Laboratory Result Diagrams: 05/06/20 14:20 05/06/20 14:20 <ALVAREZ KOWALSKI JR - Last Filed: 05/06/20 16:51> - Laboratory Result Diagrams: 05/06/20 14:20 05/06/20 14:20 - EKG Interpretation by Me EKG shows normal: Sinus rhythm Rate: Normal When compared to previous EKG there are: Previous EKG unavailable <GLORIA QUINTERO - Last Filed: 05/07/20 19:24> - Vital Signs Vital signs: Temp Pulse Resp BP Pulse Ox 98.7 F 96 30 H 184/93 H 98 05/07/20 17:56 05/07/20 05:21 05/07/20 18:01 05/07/20 18:00 05/07/20 18:01 - Laboratory Laboratory results interpreted by me: 05/06/20 05/06/20 05/07/20 14:20 14:20 10:22 WBC 12.1 H Hct 35.0 L MCV 77 L RDW 17.3 H Absolute Neuts (auto) 8.7 H Potassium 3.2 L Chloride 111 H Est GFR (MDRD) Non-Af 53 L Glucose 132 H AST 54 H Creatine Kinase 779 H Urine Protein Urine Ketones Urine Blood Ur Leukocyte Esterase Salicylates < 1.0 L Acetaminophen < 10 L 05/07/20 13:41 WBC Hct MCV RDW Absolute Neuts (auto) Potassium Chloride Est GFR (MDRD) Non-Af Glucose AST Creatine Kinase Urine Protein 100 H Urine Ketones TRACE H Urine Blood LARGE H Ur Leukocyte Esterase TRACE H Salicylates Acetaminophen - EKG Interpretation by Me Additional EKG results interpreted by me: 05/07/20 19:22 Sinus rhythm with a rate of 80, QTc 457, no acute ischemic changes. (GLORIA QUINTERO) Discharge <ALVAREZ KOWALSKI JR - Last Filed: 05/06/20 16:51> <GLORIA QUINTERO - Last Filed: 05/07/20 19:24> - Discharge Clinical Impression: Schizo affective schizophrenia, UTI (urinary tract infection) Condition: Good Disposition: PSYCH HOSP/UNIT Referrals: GERRY DONAHUE MD [Primary Care Provider] - Follow up as needed
[2020-05-06 14:39] LABS: ABSOLUTE LYMPHOCYTES (AUTO) 2.1 10^3/uL (0.5-4.7); ABSOLUTE MONOCYTES (AUTO) 1.3 10^3/uL (0.1-1.4); ABSOLUTE NEUT (AUTO) 8.7 10^3/uL (1.7-8.2); BASOPHILS % (AUTO) 0.2 % (0-2); HEMOGLOBIN 12.4 g/dL (12.0-15.5); MEAN CORPUSCULAR HEMOGLOBIN 27.4 pg (27.0-33.4); MEAN CORPUSCULAR HGB CONC 35.4 g/dL (32.0-36.0); MEAN CORPUSCULAR VOLUME 77 fl (80-97); PLATELET COUNT 263 10^3/uL (150-450); RED BLOOD COUNT 4.53 10^6/uL (3.72-5.28); RED CELL DISTRIBUTION WIDTH 17.3 % (11.5-14.0); SEGMENTED NEUTROPHILS % (AUTO) 71.8 % (42-78); TOTAL CELLS COUNTED % (AUTO) 100 %; WHITE BLOOD COUNT 12.1 10^3/uL (4.0-10.5)
[2020-05-06 14:58] LABS: ALBUMIN 4.2 g/dL (3.5-5.0); ALKALINE PHOSPHATASE 65 U/L (38-126); ANION GAP 9 (5-19); ASPARTATE AMINO TRANSFERASE 54 U/L (14-36); BILIRUBIN,DIRECT 0.2 mg/dL (0.0-0.4); BILIRUBIN,TOTAL 0.7 mg/dL (0.2-1.3); BLOOD UREA NITROGEN 11 mg/dL (7-20); CALCIUM 9.2 mg/dL (8.4-10.2); CARBON DIOXIDE 24 mmol/L (22-30); CHLORIDE 111 mmol/L (98-107); GLUCOSE 132 mg/dL (75-110); POTASSIUM 3.2 mmol/L (3.6-5.0); TOTAL PROTEIN 7.2 g/dL (6.3-8.2)
[2020-05-06 14:59] LABS: ACETAMINOPHEN < 10 ug/mL (10-30); ALCOHOL < 10 mg/dL (NONE DETECTED); SALICYLATE < 1.0 mg/dL (2.0-20.0)
--- NOTE | 2020-05-06 15:49 | RADIOLOGY REPORT (SQ) ---
EXAM DESCRIPTION: CT HEAD WITHOUT IMAGES COMPLETED DATE/TIME: 05/06/2020 3:41 pm REASON FOR STUDY: fever MS changes COMPARISON: 05/08/2020 TECHNIQUE: Axial images acquired through the brain without intravenous contrast. Images reviewed wi th bone, brain and subdural windows. Additional sagittal and coronal reconstructions were generated. Images stored on PACS. All CT scanners at this facility use dose modulation, iterative reconstruction, and/or weight based d osing when appropriate to reduce radiation dose to as low as reasonably achievable (ALARA). [facility]: Dose Right [facility]: CareDose [facility]: Dose Right [facility]: Teradose 4D [facility]: Smart Lorena Gaxiola RADIATION DOSE: CT Rad equipment meets quality standard of care and radiation dose reduction techniq ues were employed. CTDIvol: 53.2 mGy. DLP: 1017 mGy-cm. mGy. LIMITATIONS: None. FINDINGS: VENTRICLES: Normal size and contour. CEREBRUM: No masses. No hemorrhage. No midline shift. No evidence for acute infarction. Normal gra y/white matter differentiation. No areas of low density in the white matter. CEREBELLUM: No masses. No hemorrhage. No alteration of density. No evidence for acute infarction. EXTRAAXIAL SPACES: No fluid collections. No masses. ORBITS AND GLOBE: No intra- or extraconal masses. Normal contour of globe without masses. CALVARIUM: No fracture. PARANASAL SINUSES: No fluid or mucosal thickening. SOFT TISSUES: No mass or hematoma. OTHER: No other significant finding. IMPRESSION: NORMAL BRAIN CT WITHOUT CONTRAST. EVIDENCE OF ACUTE STROKE: NO. COMMENT: Quality ID # [id number]: Final reports with documentation of one or more dose reduction techniques (e.g., Automated exposure control, adjustment of the mA and/or kV according to patient size, use of iterative reconstruction technique) TECHNICAL DOCUMENTATION: JOB ID: [id number] 2010 [employer]- All Rights Reserved Reading location - IP/workstation name: [email or web address]
--- NOTE | 2020-05-06 15:50 | RADIOLOGY REPORT (SQ) ---
EXAM DESCRIPTION: CHEST SINGLE VIEW IMAGES COMPLETED DATE/TIME: 05/06/2020 3:40 pm REASON FOR STUDY: fever COMPARISON: 04/07/2020 EXAM PARAMETERS: NUMBER OF VIEWS: One view. TECHNIQUE: Single frontal radiographic view of the chest acquired. RADIATION DOSE: NA LIMITATIONS: None. FINDINGS: LUNGS AND PLEURA: No opacities, masses or pneumothorax. No pleural effusion. MEDIASTINUM AND HILAR STRUCTURES: No masses. Contour normal. HEART AND VASCULAR STRUCTURES: Heart normal in size. Normal vasculature. BONES: No acute findings. HARDWARE: None in the chest. OTHER: No other significant finding. IMPRESSION: NO ACUTE RADIOGRAPHIC FINDING IN THE CHEST. TECHNICAL DOCUMENTATION: JOB ID: [id number] 2010 [employer]- All Rights Reserved Reading location - IP/workstation name: [email or web address]
--- NOTE | 2020-05-06 18:17 | PSYCHOLOGICAL NOTE ---
Psych Note - Psych Note Date seen by psych provider: 05/06/20 Time seen by psych provider: 14:50 - Evaluation with patient from [phone]. Daughter collateral from and . Contacted [facility] from [phone]. Psych Note: Patient is a 44 year old female who presented to the Emergency Department today via [facility] for altered mental status, barricading herself in her home, and running into the odell. Patient reported she is in the Emergency Department "for dehydration and temperature of 100.4." She denied barricading herself in her home and running into the odell. She commented "it is not true." She denied any mental health history or previous mental health hospitalizations. Patient denied alcohol and drug use. She acknowledged she resides alone and commented how a cousin "sometimes/once in awhile" stays with her. When asked if she had anyone in her life that might be worried about her or to inform she is in the hospital and safe she stated "there is nobody." Patient kept looking over at the sink. When asked if she saw anything she said "no." She had poor eye contact. Patient denied suicidal and homicidal ideation. Medical staff noted patient was difficult at first and not allowing for medical procedures. Head CT dated today has no neurodegenerative language or evidenced of stroke or old infarct. Patient was alert and oriented to self, person, place, and situation. Mood was depressed with flat affect. She denied current suicidal and homicidal ideation. Patient appeared to be responding to internal stimuli as evidenced by poor eye contact and answering questions with closed responses while staring off at the sink. Thought processes were difficult to ascertain. Conversational speech was soft in tone. Intellectual abilities are estimated to be average. Insight, judgment and impulse control were poor as evidenced by very inconsistent stories from patient and daughter collateral. From and obtained collateral from patient's daughter Ning ([phone]). She identified she was with patient at her house this morning when patient "didn't recognize her, didn't remember having any children, her memory is bad, the house is in poor condition, patient seemed dazed off one mom ent and then having outbursts the next/in the blink of an eye." Daughter noted "I have never seen her like this, she is not in a good place, none of this is like her." She further described patient as "harmless, friendly, loving and caring." She acknowledged patient did run into the odell today and daughter was the one to call EMS. She noted neighbors told her patient hit her head, had a stoke and concussion but didn't go to the hospital. She stated patient has a history of Schizophrenia/Hearing Voices/Depression, was seeing a psychiatrist, and has never been hospitalized. She reported she did not think patient was taking her medication as she tried flushing it this morning. Daughter reported a family history of mental health and mentioned a cousin with similar presentation to patient's current state. Daughter also noted Diabetes and Cancer runs in the family. From [phone] contacted [employer] and spoke to [employer]. Patient has diagnoses listed as Schizoaffective Bipolar Type, Schizoaffective Depressive Type, Schizophrenia and Prolonged Post Traumatic Stress Disorder. She was going to [facility] for mental health services but does not look like she is currently linked up. Clinical Presentation: Altered Mental Status Tried flushing medications today so concern for medication compliance History of Schizoaffective and Prolong PTSD Medication recommendations made by the psychiatric medication provider Dr. Selwyn AZUL., includes: Add Clonidine 0.1MG Patch every week for calming effect/anxiety/sleep Add Zyprexa 2.5MG twice a day for psychosis/mood stabilization/impulse control (QTc is 457 so must utilize low dose antipsychotic) Impression/Plan: Recommendation for 24 Hour Petition for Evaluation. Patient presented with altered mental status, barricaded herself in her home then ran off into the odell, has a history of Schizoaffective and Prolonged PTSD, was trying to flush medication this morning per daughter, patient and daughter's stories are inconsistent which seems like patient is a poor historian. Patient had poor eye contact, used close ended responses, and kept staring off at the sink which may be related to responding to internal stimuli. Daughter noted patient didn't recognize her today, forgot she even had children, and behavior changed from being dazed to having outbursts. Consulted with Dr. Lm moore the management and care of patient. ED Physician in agreement with recommendations.
[2020-05-07] MEDS ORDERED: HALOPERIDOL LACTATE INJ 5 MG/1 ML VIAL IM ONE ×2 (07:33→09:45)
[2020-05-07] MEDS ORDERED: POTASSI CL 20 MEQ/50 ML RIDER 20 MEQ/50 ML RTUPB IV ONE ×2 (07:33→09:45)
--- NOTE | 2020-05-07 08:51 | EKG REPORT ---
SEVERITY:- ABNORMAL ECG - SINUS RHYTHM PROBABLE LEFT VENTRICULAR HYPERTROPHY : Confirmed by: Addison Lozano MD 07-May-2020 08:50:19
[2020-05-07] MEDS ORDERED: NORMAL SALINE 1000 ML 1,000 ML IV ONE (09:55)
[2020-05-07] MEDS ORDERED: CLONIDINE 0.1 MG/24 HR PATCH.TDWK TD ONE (09:56)
--- NOTE | 2020-05-07 10:14 | ER Document Report ---
Doctor's Note Notes: 05/07/20 10:08 PHYSICAL EXAMINATION: GENERAL: Well-appearing and in no acute distress. HEAD: Atraumatic, normocephalic. EYES: sclera anicteric, conjunctiva are normal. ENT: nares patent. Moist mucous membranes. NECK: Normal range of motion, supple without lymphadenopathy LUNGS: CTAB and equal. No wheezes rales or rhonchi. HEART: Regular rate and rhythm without murmurs ABDOMEN: Soft, nontender EXTREMITIES: Normal range of motion BACK: No tenderness NEUROLOGICAL: Cranial nerves grossly intact. Normal speech spoken and quiet tone. Normal gait. PSYCH: flat affect SKIN: Warm, Dry, normal turgor, no rashes or lesions noted Patient complains of dehydration is requesting oral fluids. Patient does have a liter of IV fluids infusing at this time. Patient advised that we do still need to collect a urine specimen. 05/07/20 17:56 Behavioral health team states that patient has been accepted for transfer to [facility] tomorrow after 9 AM. Patient is otherwise medically clear for transfer at this time.
[2020-05-07] MEDS ORDERED: FLUTICASONE/VILANTEROL 100-25 MCG/DOSE IH SCH ×2 (10:15→12:00)
[2020-05-07] MEDS ORDERED: LOSARTAN POTASSIUM 50 MG TABLET PO SCH (10:15)
[2020-05-07] MEDS ORDERED: UMECLIDINIUM BROMIDE 62.5 MCG/DOSE IH SCH (10:15)
--- NOTE | 2020-05-07 11:01 | PSYCHOLOGICAL NOTE ---
Psych Note - Psych Note Date seen by psych provider: 05/07/20 Time seen by psych provider: 10:39 - Collateral from patient vehicle safety inspector at 1039. Chart review at 1045. Collateral from Attending ED Nurse at 1053. Daughter discussion and collateral from [phone]. Psych Note: Patient is a 44 year old female in the Emergency Department on a 24 Hour Petition for Evaluation due to altered mental status, psychosis, history of Schizoaffective Disorder and Prolonged Post Traumatic Stress Disorder, and concerns for not taking medications since she tried flushing them yesterday morning per daughter. Patient Electric Melt Operator reported patient eloped this morning around 0718, made it to the lobby, and thinks ended up in parking lot where security was able to get her and bring her back. Chart review revealed medication recommendations not started yesterday. She was administered Haldol this morning. Medical documentation noted patient often stood in corner of her room under the TV with eyes closed, she went to other rooms, she was not easily redirected, and she would often mumble and at one point kept repeating red blood Clive. Patient urine analysis is indicative of urinary tract infection (may cause and/or exacerbate mental health symptoms). Urine Drug Screen is negative for substances. Attending ED nurse stated patient did talk with her this morning. She stated patient said she was dehydrated. She also noted patient kept leaving her room. Spoke to patient's daughter Ning from [phone]. She was made aware of FULL IVC and behaviors that contributed to that decision. She identified patient's medication area only had Potassium Chloride and Furosemide however she knows patient was on a bunch more medication. She stated neighbors have talked about patient moving things out of her apartment and saying she was relocating but when daughter asked patient denied. Daughter plans to go to patient's home today to look through things and talk with her landlord. Daughter confirmed trauma history but did not provide any details. Clinical Presentation: Urinary Tract Infection- antibiotics started today (05/07/2020) Altered Mental Status/Psychosis Tried flushing medications today so concern for medication compliance History of Schizoaffective and Prolong PTSD Impression/Plan: Recommendation for FULL IVC. Patient displayed behaviors that would indicate she is responding to internal stimuli: standing in corner of room under TV with eyes closed, mumbling then repeating red blood Clive, and eloping. Will need COVID-19 testing results before facilities will consider for placeme nt. Consulted with Dr. Amato regarding the management and care of patient. ED Physician in agreement with recommendations.
[2020-05-07] MEDS ORDERED: RINGERS SOLUTION,LACTATED 1,000 ML IV ONE (11:54)
[2020-05-07 14:11] LABS: APPEARANCE,URINE CLOUDY; BILIRUBIN,URINE NEGATIVE (NEGATIVE); COLOR,URINE RED; GLUCOSE, URINE NEGATIVE (NEGATIVE); KETONES,URINE TRACE mg/dL (NEGATIVE); LEUKOCYTE ESTERASE,URINE TRACE (NEGATIVE); NITRITE,URINE NEGATIVE (NEGATIVE); PROTEIN,URINE 100 mg/dL (NEGATIVE); URINE SPECIFIC GRAVITY 1.023; UROBILINOGEN,URINE NEGATIVE mg/dL (<2.0)
[2020-05-07 14:25] LABS: URINE AMPHETAMINES SCREEN NEGATIVE; URINE BARBITURATES SCREEN NEGATIVE; URINE BENZODIAZEPINES SCREEN NEGATIVE; URINE COCAINE SCREEN NEGATIVE; URINE MARIJUANA (THC) SCREEN NEGATIVE; URINE METHADONE SCREEN NEGATIVE; URINE PHENCYCLIDINE SCREEN NEGATIVE
[2020-05-07] MEDS ORDERED: CEFTRIAXONE 1 GM/D5W RTU 1 GM/50 ML RTUPB IV ONE (14:32)
[2020-05-07] MEDS ORDERED: METOPROLOL TARTRATE 50 MG TABLET PO SCH (16:15)
[2020-05-07] MEDS ORDERED: OLANZAPINE 2.5 MG TABLET PO SCH (18:00)
[2020-05-08 08:18] VITALS: BP 164/58
--- NOTE | 2020-05-08 09:42 | ER Document Report ---
Doctor's Note Notes: 05/08/20 09:41 Constitutional: Nontoxic appearance, no acute distress Eyes: Nonicteric, extraocular movements intact, sclera clear Cardiovascular: No JVD Respiratory: Nonlabored breathing, no use of accessory muscles, no tachypnea Gastrointestinal: Abdomen not distended Muculoskeletal: Moves all extremities well Skin: Normal color Neuro: Awake alert oriented, normal speech Psych: Normal mood, cooperative with staff Sheriff zhu is here for transport, patient stable for transfer at this time. Scription was sent with patient for her UTI.
[2020-05-08] MEDS ORDERED: FLUTICASONE/VILANTEROL 100-25 MCG/DOSE IH SCH (10:00)
[2020-05-08] MEDS ORDERED: CEPHALEXIN 500 MG CAPSULE PO SCH (10:00)
== END 2020-05-08 09:54 ==
LOC: ER 12:45
DX: F20.9 Schizophrenia, unspecified (principal); N39.0 Urinary tract infection, site not specified; R31.9 Hematuria, unspecified; R42 Dizziness and giddiness; E86.0 Dehydration; J45.909 Unspecified asthma, uncomplicated; Z79.51 Long term (current) use of inhaled steroids; I10 Essential (primary) hypertension; E11.9 Type 2 diabetes mellitus without complications; Z79.899 Other long term (current) drug therapy; Z20.828 Contact with and (suspected) exposure to other viral communicable diseases
CPT/HCPCS: 93005; 99285; 96372; 96360; 96361; 36415; 87086; 80307 ×4; 82550; 85025; 86592; 80053; 81001; 71045; 70450; 93010; U0003; A9270 ×4; J1630; J3480; J7030; J7120; J0696; J3490 ×2; C9803; 87635

== ENCOUNTER 2020-05-20 20:42 | Emergency (ER) | payer MEDICARE, MEDICAID ==
--- NOTE | 2020-05-20 21:01 | ER Document Report ---
ED Psych Disorder / Suicide - General Chief Complaint: Psych Problem Stated Complaint: IVC Time Seen by Provider: 05/20/20 21:01 Primary Care Provider: GERRY DONAHUE MD [Primary Care Provider] - Follow up as needed TRAVEL OUTSIDE OF THE [place] IN LAST 30 DAYS: No - HPI Notes: 44-year-old female presents under IVC. Patient states she is unaware she is under IVC. Answers "nothing" to most questions and currently denies complaints. She states that she saw her children and grandchildren today. She denies any events that occurred at home. Patient states that she has a lot of prescribed medication that she is taking, she states she has medicine from [facility]", however will not confirm or deny taking medication. Patient is limited historian. Per IVC paperwork: "Patient barricaded herself in the home. She is not eating or taking care of herself. She has a history of schizophrenia and has been noncompliant with prescribed medications for the past week. She has auditory command hallucinations telling her to hurt others. Law enforcement was called to the home and involved. Patient is a danger to herself and others. - Related Data Allergies/Adverse Reactions: latex [Latex] Allergy (Severe, Verified 04/07/20 08:32) red blisters Shellfish * [Shellfish] Allergy (Severe, Verified 04/07/20 08:32) throat swells sulfamethoxazole [From Bactrim] Allergy (Mild, Verified 04/07/20 08:32) Generalized rash,swells tongue trimethoprim [From Bactrim] Allergy (Mild, Verified 04/07/20 08:32) Generalized rash,tongue swells Iodinated Contrast Media Allergy (Unknown, Verified 05/07/20 10:41) calcium carbonate [From Tums] Adverse Reaction (Severe, Verified 04/07/20 08:32) severe abdominal pain adhesive tape Adverse Reaction (Intermediate, Verified 05/07/20 10:43) Pruritis iodine Adverse Reaction (Intermediate, Verified 05/07/20 10:42) Alopecia Past Medical History - Social History Smoking Status: Unknown if Ever Smoked Family History: Reviewed & Not Pertinent - Past Medical History Cardiac Medical History: Reports: Hx Hypertension - MEDICATED Denies: Hx Coronary Artery Disease, Hx Heart Attack Pulmonary Medical History: Reports: Hx Asthma, Hx Pneumonia Denies: Hx Bronchitis, Hx COPD Neurological Medical History: Denies: Hx Cerebrovascular Accident, Hx Seizures Endocrine Medical History: Reports: Hx Diabetes Mellitus Type 2 Renal/ Medical History: Denies: Hx Peritoneal Dialysis GI Medical History: Reports: Hx Gastroesophageal Reflux Disease, Hx Irritable Bowel. Denies: Hx Hepatitis, Hx Hiatal Hernia, Hx Ulcer Musculoskeletal Medical History: Reports Hx Arthritis - back /aracelis osteoarthritis knees/TOES,PLANTER FASCITIS,HEEL SPURS,ARACELIS BUNIONS Psychiatric Medical History: Reports: Hx Post Traumatic Stress Disorder Infectious Medical History: Denies: Hx Hepatitis Past Surgical History: Reports: Hx Section - X3. Denies: Hx Hysterectomy, Hx Mastectomy, Hx Open Heart Surgery, Hx Pacemaker - Immunizations Hx Diphtheria, Pertussis, Tetanus Vaccination: No Hx Pneumococcal Vaccination: 08/30/12 Review of Systems - Review of Systems Notes: Patient denying complaints, though there is limitation to ROS given patient's participation/psychosis Cardiovascular: denies: Chest pain Respiratory: denies: Short of breath Gastrointestinal: denies: Abdominal pain Physical Exam - Vital signs Vitals: Temp Pulse Resp BP Pulse Ox 98.5 F 78 20 161/73 H 100 05/20/20 20:42 05/20/20 20:42 05/20/20 20:42 05/20/20 20:42 05/20/20 20:42 - General General appearance: Appears well, Alert In distress: None - HEENT Head: Normocephalic, Atraumatic Extraocular movements intact: Yes Pupils: PERRL - Respiratory Breath sounds: Normal - Cardiovascular Rhythm: Regular - Abdominal Inspection: Obese Tenderness: Nontender - Extremities General upper extremity: Normal ROM General lower extremity: Normal ROM - Neurological Neuro grossly intact: Yes Orientation: AAOx4 Motor strength normal: LUE, RUE, LLE, RLE - Psychological Associated symptoms: Flat affect. No: Tangential speech - Skin Skin Temperature: Warm Course - Re-evaluation Re-evalutation: 44-year-old female with history of schizophrenia of her schizoaffective disorder here under IVC for medication noncompliance, hallucinations and being a danger to herself/others. Patient limited historian, denying complaints. She does appear to be internally preoccupied, flat affect, currently cooperative. Concern for psychosis versus acute exacerbation of schizophrenia versus potentially metabolic cause. Will check labs/EKG to assess for metabolic causes, and have behavioral health weigh in for IVC. 05/20/20 22:34 Labs reviewed. No leukocytosis or left shift. Hemoglobin appears to be base line, chronic anemia. Electrolytes okay. Creatinine within normal limits. No elevation of LFTs or T bili. Urine does not suggest UTI. Ethanol negative. UDS negative. Salicylates/APAP negative. 05/20/20 22:55 TSH and T4 within normal limits. Consider patient medically clear at this time. She will see [facility] for further evaluation of her likely acute psychosis. - Vital Signs Vital signs: Temp Pulse Resp BP Pulse Ox 98.5 F 78 20 161/73 H 100 05/20/20 20:42 05/20/20 20:42 05/20/20 20:42 05/20/20 20:42 05/20/20 20:42 - Laboratory Result Diagrams: 05/20/20 21:47 05/20/20 21:47 Laboratory results interpreted by me: 05/20/20 05/20/20 05/20/20 21:13 21:47 21:47 Hgb 11.8 L Hct 33.4 L MCV 78 L RDW 16.5 H Chloride 109 H Est GFR (MDRD) Non-Af 59 L Glucose 132 H Urine Protein 30 H Urine Ascorbic Acid 40 H Salicylates < 1.0 L Acetaminophen < 10 L - EKG Interpretation by Me Additional EKG results interpreted by me: EKG as interpreted by me. Sinus rhythm, rate 72. Somewhat of a poor baseline. Narrow QRS, QTc within normal limits. No ST segment elevation. Discharge - Discharge Clinical Impression: Involuntary commitment Psychosis Qualifiers: Psychosis type: unspecified psychosis type Qualified Code(s): F29 - Unspecified psychosis not due to a substance or known physiological condition Disposition: OTHER Referrals: GERRY DONAHUE MD [Primary Care Provider] - Follow up as needed
[2020-05-20 22:03] LABS: APPEARANCE,URINE SLIGHTLY-CLOUDY; BILIRUBIN,URINE NEGATIVE (NEGATIVE); COLOR,URINE YELLOW; GLUCOSE, URINE NEGATIVE (NEGATIVE); KETONES,URINE NEGATIVE (NEGATIVE); LEUKOCYTE ESTERASE,URINE NEGATIVE (NEGATIVE); NITRITE,URINE NEGATIVE (NEGATIVE); PROTEIN,URINE 30 mg/dL (NEGATIVE); URINE SPECIFIC GRAVITY 1.029; UROBILINOGEN,URINE NEGATIVE mg/dL (<2.0)
[2020-05-20 22:05] LABS: ABSOLUTE LYMPHOCYTES (AUTO) 2.9 10^3/uL (0.5-4.7); ABSOLUTE MONOCYTES (AUTO) 0.9 10^3/uL (0.1-1.4); ABSOLUTE NEUT (AUTO) 4.6 10^3/uL (1.7-8.2); BASOPHILS % (AUTO) 0.4 % (0-2); EOSINOPHILS % (AUTO) 0.4 % (0-6); HEMATOCRIT 33.4 % (36.0-47.0); HEMOGLOBIN 11.8 g/dL (12.0-15.5); LYMPHOCYTES % (AUTO) 33.8 % (13-45); MEAN CORPUSCULAR HEMOGLOBIN 27.6 pg (27.0-33.4); MEAN CORPUSCULAR HGB CONC 35.3 g/dL (32.0-36.0); MEAN CORPUSCULAR VOLUME 78 fl (80-97); MONOCYTES % (AUTO) 11.1 % (3-13); PLATELET COUNT 275 10^3/uL (150-450); RED BLOOD COUNT 4.27 10^6/uL (3.72-5.28); RED CELL DISTRIBUTION WIDTH 16.5 % (11.5-14.0); SEGMENTED NEUTROPHILS % (AUTO) 54.3 % (42-78); TOTAL CELLS COUNTED % (AUTO) 100 %; WHITE BLOOD COUNT 8.5 10^3/uL (4.0-10.5)
[2020-05-20 22:19] LABS: URINE AMPHETAMINES SCREEN NEGATIVE; URINE BARBITURATES SCREEN NEGATIVE; URINE BENZODIAZEPINES SCREEN NEGATIVE; URINE COCAINE SCREEN NEGATIVE; URINE MARIJUANA (THC) SCREEN NEGATIVE; URINE METHADONE SCREEN NEGATIVE; URINE PHENCYCLIDINE SCREEN NEGATIVE
[2020-05-20 22:25] LABS: ALBUMIN 4.2 g/dL (3.5-5.0); ALKALINE PHOSPHATASE 77 U/L (38-126); ANION GAP 8 (5-19); ASPARTATE AMINO TRANSFERASE 35 U/L (14-36); BILIRUBIN,DIRECT 0.3 mg/dL (0.0-0.4); BILIRUBIN,TOTAL 0.7 mg/dL (0.2-1.3); BLOOD UREA NITROGEN 18 mg/dL (7-20); CALCIUM 9.2 mg/dL (8.4-10.2); CARBON DIOXIDE 25 mmol/L (22-30); CHLORIDE 109 mmol/L (98-107); GLUCOSE 132 mg/dL (75-110); POTASSIUM 4.1 mmol/L (3.6-5.0); TOTAL PROTEIN 7.1 g/dL (6.3-8.2)
[2020-05-20 22:28] LABS: ACETAMINOPHEN < 10 ug/mL (10-30); ALCOHOL < 10 mg/dL (NONE DETECTED); SALICYLATE < 1.0 mg/dL (2.0-20.0)
[2020-05-20 22:39] LABS: FREE T4 (FREE THYROXINE) 1.26 ng/dL (0.78-2.19)
[2020-05-20 22:53] LABS: THYROID STIMULATING HORMONE 1.11 uIU/mL (0.47-4.68)
--- NOTE | 2020-05-21 08:35 | EKG REPORT ---
SEVERITY:- ABNORMAL ECG - SINUS RHYTHM LEFT VENTRICULAR HYPERTROPHY : Confirmed by: Beata Beck MD 21-May-2020 08:34:37
--- NOTE | 2020-05-21 13:29 | ER Document Report ---
Doctor's Note Notes: 05/21/20 13:28 Patient's chart was reviewed. She is sitting up eating lunch no distress at this time. History of schizophrenia noncompliant with medications. Lab work was reviewed no acute emergent abnormalities. Patient is an IVC. Awaiting psychiatric evaluation, recommendations for plan of care and medications
[2020-05-21] MEDS: CHLORPROMAZINE HCL INJ 25 MG/1 ML AMPULE IM SCH ×2 (15:36→21:23)
[2020-05-21] MEDS: LITHIUM CARBONATE 300 MG CAPSULE PO SCH (15:36)
[2020-05-21] MEDS: BENZTROPINE MESYLATE INJ 2 MG/2 ML AMPULE IM SCH (15:37)
[2020-05-21] MEDS ORDERED: LITHIUM CARBONATE 300 MG CAPSULE PO SCH (22:00)
[2020-05-22] MEDS: CHLORPROMAZINE HCL INJ 25 MG/1 ML AMPULE IM SCH ×3 (03:37→16:33)
[2020-05-22] MEDS: BENZTROPINE MESYLATE INJ 2 MG/2 ML AMPULE IM SCH (09:18)
[2020-05-22] MEDS: LITHIUM CARBONATE 300 MG CAPSULE PO SCH (09:19)
--- NOTE | 2020-05-22 13:27 | PSYCHOLOGICAL NOTE ---
Psych Note - Psych Note Date seen by psych provider: 05/22/20 Time seen by psych provider: 10:40 - attempted Psych Note: Check in with patient attempted: Patient is currently sleeping. Attending nurse reports no significant changes noted. Patient was noted to disclose to attending nurse this morning that she does not want to take medications because it is "effecting her fetus" and that "last night after taking medication" she felt like her "fetus was out of the sac k." Clinician notes patient is not . Chart review Conducted: Patient was accepted yesterday by [facility] pending negative COVID. Clinician contacted [facility] to confirm bed availability today if COVID results can be obtained today. Unfortunately, the staff today is not the same as yesterday so they will check with provider and call back. Clinician was contacted by Leyla with [facility] at 1320; she confirms if negative COVID patient has bed confirmed for today. Patient's COVID results came in. Clinician contact Leyla at [facility] at 1538; received accepting doctor's name. Medication recommendations per [facility]'s Contracted psychiatrist are as follows: [place] 600mg every morning and 300mg every evening Thorazine 25mg every 6 hours Cogentin 1mg daily Impression/Plan: Patient is recommended for continued IVC. Patient has been formally accepted to [facility] at [address] Enio Sanford; transportation was requested at 1544. Dr. Amato was consulted on the care and management of this patient; attending physician is in agreement with recommendations and disposition.
[2020-05-22 16:03] VITALS: BP 138/72
--- NOTE | 2020-05-24 09:23 | PSYCHOLOGICAL NOTE ---
Psych Note - Psych Note Date seen by psych provider: 05/21/20 Time seen by psych provider: 12:43 - Evaluation with patient from [id number]. Also later in evening with oldest daughter present. Psych Note: Patient is a 44 year old female who presented to the Emergency Department last evening via EMS with [place] [employer] involvement after she barricaded self in house and would not let family or others in, has recent diagnosis of Schizophrenia, and been noncompliant with prescribed medications. Patient was put on a 24 Hour Petition for Evaluation. Patient reported "I'm doing alright" when asked how she was. She stated "they said I am here for Involuntary Commitment." Patient admitted she was just hospitalized at [facility] (seen by [facility] and sent there for inpatient treatment for similar etiology). She stated the prescriptions were sent over to her pharmacy, she was unsure of the medication names, and mentioned one started with an "O." She denied taking prescribed medications and stated "since being out of the hospital I have been going through spiritual battles, do you believe in that, there are spirits all around, I am being attacked by them, they are from other spiritual worlds, it is because of who I am and God, medicat ions and things cannot stop them, they are from the underworld." She identified she is a very nondenominational person. Patient stated "the only thing I need is rest, plenty of it, I have not been getting any, the last time I was here I was restless, this time I am different and just tired but I look better." Patient denied barricading herself in her home and commented "I have boxes packed up because I am moving, many boxes are against the door to shut out the light and not let people look in the 2 peep holes I have." When older daughter was present later evening patient stated "I am not crazy, I do not need to be here, I went to [facility] under someone else's identify/mixed up identity, even they said I shouldn't be there, I was here the last time for UTI not mental health, I am nondenominational and I told you about spirits earlier because you said you believed in that/people can feel and see spirits it does not make them crazy." Then she talked about her and him being the one to be informed of plan of care since he would be next of Kin (daughter at bedside asked, who is your , what's his name, and shook her head no as if communicating to this clinician there is no ). Patient was alert and oriented to self, person, place, time and situation. Mood was depressed with flat affect. She denied current suicidal and homicidal ideation. Patient did not appear to be responding to internal stimuli as evidenced by fair eye contact and answering questions appropriately when addressed, however talked about spiritual battles she has experienced interfering with taking prescribed medication. Thought processes were perseverative on being very nondenominational and the spiritual battles. Conversational speech was within normal limits for rate, tone and prosody, however later seemed more pressured. Intellectual abilities are estimated to be average. Insight, judgment and impulse control were poor as evidenced by not taking prescribed medications and report of dealing with spiritual battles which seemed to interfere with every day functioning. 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 Selwyn AZUL., includes: Add [place] Immediate Release 600MG in the morning and 300MG at night for mood stabilization Add Thorazine 25MG Intramuscular or by mouth every 6 hours scheduled for psychosis Add Cogentin 1MG Intramuscular or by mouth daily to curb tremor side effects often associated with antipsychotic medications Impression/Plan: Recommendation for FULL IVC (patient was on a 24 Hour Petition for Evaluation). Patient stated not taking prescribed medications since [facility] discharge due to spiritual battles/attacks on her. She presented depressed with flat affect. She denied having mental health and stated she is just very nondenominational and believes in spirits. She perseverated on this and it seemed to interfere with every day living given not taking prescribed medications and barricading self in house. Consulted with Dr. Amato regarding the management and care of patient. ED Physician in agreement with recommendations.
== END 2020-05-22 17:02 | disposition other institution (70) ==
LOC: ER 20:42
DX: F20.9 Schizophrenia, unspecified (principal); Z20.828 Contact with and (suspected) exposure to other viral communicable diseases
CPT/HCPCS: 93005; 99285; 96372 ×2; 36415; 84439; 80307 ×4; 84443; 84703; 85025; 80053; 81001; 93010; U0003 ×2; J0515 ×2; J3230 ×2; A9270 ×2; C9803; 87635; J3490

== ENCOUNTER 2020-07-30 22:42 | Emergency (ER) | payer MEDICARE, MEDICAID ==
--- NOTE | 2020-07-30 23:26 | ER Document Report ---
ED Medical Screen (RME) - General Chief Complaint: Psych Problem Stated Complaint: IVC Time Seen by Provider: 07/30/20 23:15 Primary Care Provider: GERRY DONAHUE MD [Primary Care Provider] - Follow up as needed TRAVEL OUTSIDE OF THE [place] IN LAST 30 DAYS: No - HPI Notes: 07/30/20 23:26 44-year-old female to the emergency department with police under an IVC order. Apparently she was found wandering in the street. Mobile crisis was called and she was found to be delusional and slightly paranoid. Mobile crisis under an IVC order. Patient cannot tell me why she is in the emergency department. She gets very defensive and is obviously paranoid. She has poor eye contact and tells me that I am violating her rights. Patient states that she feels sad. She tells me that she feels sad because she lost her son. When I tried to inquire where her son was and how old he was she told me that I was asking too many questions. She denies SI or HI but does seem to be responding to some internal stimuli. I performed a brief medical screening exam on the patient determined that the patient needs further evaluation and management by main side provider. I have placed initial orders to help expedite care. - Related Data Allergies/Adverse Reactions: latex [Latex] Allergy (Severe, Verified 07/30/20 23:13) red blisters Shellfish * [Shellfish] Allergy (Severe, Verified 07/30/20 23:13) throat swells sulfamethoxazole [From Bactrim] Allergy (Mild, Verified 07/30/20 23:13) Generalized rash,swells tongue trimethoprim [From Bactrim] Allergy (Mild, Verified 07/30/20 23:13) Generalized rash,tongue swells Iodinated Contrast Media Allergy (Unknown, Verified 07/30/20 23:13) calcium carbonate [From Tums] Adverse Reaction (Severe, Verified 07/30/20 23:13) severe abdominal pain adhesive tape Adverse Reaction (Intermediate, Verified 07/30/20 23:13) Pruritis iodine Adverse Reaction (Intermediate, Verified 07/30/20 23:13) Alopecia Past Medical History - Past Medical History Cardiac Medical History: Reports: Hx Hypertension - MEDICATED Denies: Hx Coronary Artery Disease, Hx Heart Attack Pulmonary Medical History: Reports: Hx Asthma, Hx Pneumonia Denies: Hx Bronchitis, Hx COPD Neurological Medical History: Denies: Hx Cerebrovascular Accident, Hx Seizures Endocrine Medical History: Reports: Hx Diabetes Mellitus Type 2 Renal/ Medical History: Denies: Hx Peritoneal Dialysis GI Medical History: Reports: Hx Gastroesophageal Reflux Disease, Hx Irritable Bowel. 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 Denies: Hx Hysterectomy, Hx Mastectomy, Hx Open Heart Surgery, Hx Pacemaker - Immunizations Hx Diphtheria, Pertussis, Tetanus Vaccination: No Physical Exam - Vital signs Vitals: Temp Pulse Resp BP Pulse Ox 97.8 F 94 20 161/105 H 97 07/30/20 22:52 07/30/20 22:52 07/30/20 22:52 07/30/20 22:52 07/30/20 22:52 Course - Vital Signs Vital signs: Temp Pulse Resp BP Pulse Ox 97.8 F 94 20 161/105 H 97 07/30/20 22:52 07/30/20 22:52 07/30/20 22:52 07/30/20 22:52 07/30/20 22:52 Doctor's Discharge - Discharge Referrals: GERRY DONAHUE MD [Primary Care Provider] - Follow up as needed
--- NOTE | 2020-07-30 23:57 | ER Document Report ---
ED General - General Chief Complaint: Psych Problem Stated Complaint: IVC Time Seen by Provider: 07/30/20 23:15 Primary Care Provider: GERRY DONAHUE MD [Primary Care Provider] - Follow up as needed TRAVEL OUTSIDE OF THE [place] IN LAST 30 DAYS: No - HPI Notes: 44-year-old female with history of schizophrenia presents under IVC after she was found wandering in the streets. Patient really does not provide any sort of history. She does reference left arm pain but does not elaborate much further. She repeats numerous times "violating my rights". HPI is limited. Per IVC paperwork: The respondent was found wandering in the roadway on a [address] prompting a police response. Mobile lock up worker responded and found the respondent to be delusional, talking about people they could not see and stating that this was going to be the last day that she lived here. She also stated she worked for the [employer] of the third degree. There is no previous history of mental illness that could be determined and no information on any medications she may be prescribed available due to her level of functioning. She is a danger to herself. - Related Data Allergies/Adverse Reactions: latex [Latex] Allergy (Severe, Verified 07/30/20 23:13) red blisters Shellfish * [Shellfish] Allergy (Severe, Verified 07/30/20 23:13) throat swells sulfamethoxazole [From Bactrim] Allergy (Mild, Verified 07/30/20 23:13) Generalized rash,swells tongue trimethoprim [From Bactrim] Allergy (Mild, Verified 07/30/20 23:13) Generalized rash,tongue swells Iodinated Contrast Media Allergy (Unknown, Verified 07/30/20 23:13) calcium carbonate [From Tums] Adverse Reaction (Severe, Verified 07/30/20 23:13) severe abdominal pain adhesive tape Adverse Reaction (Intermediate, Verified 07/30/20 23:13) Pruritis iodine Adverse Reaction (Intermediate, Verified 07/30/20 23:13) Alopecia Past Medical History - General Information source: Law Enforcement - Social History Smoking Status: Unknown if Ever Smoked Frequency of alcohol use: None Drug Abuse: None Family History: Reviewed & Not Pertinent Patient has homicidal ideation: No - Past Medical History Cardiac Medical History: Reports: Hx Hypertension - MEDICATED Denies: Hx Coronary Artery Disease, Hx Heart Attack Pulmonary Medical History: Reports: Hx Asthma, Hx Pneumonia Denies: Hx Bronchitis, Hx COPD Neurological Medical History: Denies: Hx Cerebrovascular Accident, Hx Seizures Endocrine Medical History: Reports: Hx Diabetes Mellitus Type 2 Renal/ Medical History: Denies: Hx Peritoneal Dialysis GI Medical History: Reports: Hx Gastroesophageal Reflux Disease, Hx Irritable Bowel. Denies: Hx Hepatitis, Hx Hiatal Hernia, Hx Ulcer Musculoskeletal Medical History: Reports Hx Arthritis - back /aracelis osteoarthritis knees/TOES,PLANTER FASCITIS,HEEL SPURS,ARACELIS BUNIONS Psychiatric Medical History: Reports: Hx Post Traumatic Stress Disorder Infectious Medical History: Denies: Hx Hepatitis Past Surgical History: Reports: Hx Section - X3. Denies: Hx Hysterectomy, Hx Mastectomy, Hx Open Heart Surgery, Hx Pacemaker - Immunizations Hx Diphtheria, Pertussis, Tetanus Vaccination: No Hx Pneumococcal Vaccination: 08/30/12 Review of Systems - Review of Systems -: Yes ROS unobtainable due to patient's medical condition Physical Exam - Vital signs Vitals: Temp Pulse Resp BP Pulse Ox 97.8 F 94 20 161/105 H 97 07/30/20 22:52 07/30/20 22:52 07/30/20 22:52 07/30/20 22:52 07/30/20 22:52 - General General appearance: Alert In distress: None - HEENT Head: Normocephalic, Atraumatic Extraocular movements intact: Yes Pupils: PERRL - Respiratory Breath sounds: Normal - Cardiovascular Rhythm: Regular Heart sounds: Normal auscultation - Abdominal Inspection: Obese Tenderness: Nontender - Back Back: No: Wounds - Extremities General upper extremity: Normal inspection General lower extremity: Normal inspection Forearm: No: Nontender, Deformity - Left, Ecchymosis - Left Knee: Nontender - Neurological Neuro grossly intact: Yes Notes: Moving all extremities, ambulates with steady gait, able to stand up then sit down in bed without issue - Psychological Associated symptoms: Other - Appears to be grossly disorganized, responding to internal stimuli and muttering to herself, avoids eye contact - Skin Skin Temperature: Warm Course - Re-evaluation Re-evalutation: 44-year-old female history of schizophrenia with med noncompliance here under IVC after she was found wandering the streets. On exam she appears to be grossly disorganized, responding to internal stimuli and muttering to herself. She relays not able to give any significant history. I saw her in April when she was under IVC, her presentation is similar today as it was then. I reviewed her med list, looks like she should be on Haldol, I have ordered Haldol 5 mg IM. Patient will remain under IVC and board in the emergency department till she can be seen by [facility]. She complains of left arm pain, I do not find any focal areas of tenderness, however will obtain x-ray to rule out occult injury. 07/31/20 02:41 Minimal leukocytosis, patient is afebrile and is not exhibit obvious signs of infection at this time. No acute anemia. Mild low potassium, oral replacement was provided. Creatinine within normal limits. Urine does not suggest UTI, UDS negative. Salicylate, APAP and ethanol negative. Forearm x-ray is negative for fracture. 07/31/20 02:42 Patient is considered medically cleared at this point. She will board in the emergency department till she can be seen by [facility]. - Vital Signs Vital signs: Temp Pulse Resp BP Pulse Ox 97.8 F 94 20 161/105 H 97 07/30/20 22:52 07/30/20 22:52 07/30/20 22:52 07/30/20 22:52 07/30/20 22:52 - Laboratory Result Diagrams: 07/30/20 23:40 07/30/20 23:40 Laboratory results interpreted by me: 07/30/20 07/30/20 07/31/20 23:40 23:40 02:11 WBC 14.2 H MCV 79 L MCH 26.7 L RDW 15.1 H Absolute Neuts (auto) 10.5 H Absolute Monos (auto) 1.5 H Potassium 3.3 L Est GFR (MDRD) Non-Af 58 L Glucose 131 H AST 84 H ALT 36 H Urine Protein 100 H Urine Ketones 20 H Urine Blood MODERATE H Salicylates < 1.0 L Acetaminophen < 10 L - Diagnostic Test Radiology reviewed: Image reviewed, Reports reviewed - EKG Interpretation by Me Additional EKG results interpreted by me: EKG is interpreted by me. Sinus rhythm, rate 91. Narrow QRS, QTC within normal limits. Nonspecific ST changes. No ST segment elevation. Discharge - Discharge Clinical Impression: Schizophrenia, disorganized, Involuntary commitment Disposition: OTHER Referrals: GERRY DONAHUE MD [Primary Care Provider] - Follow up as needed
[2020-07-30 23:58] LABS: ABSOLUTE BASOPHILS # (AUTO) 0.1 10^3/uL (0.0-0.2); ABSOLUTE LYMPHOCYTES (AUTO) 2.1 10^3/uL (0.5-4.7); ABSOLUTE MONOCYTES (AUTO) 1.5 10^3/uL (0.1-1.4); ABSOLUTE NEUT (AUTO) 10.5 10^3/uL (1.7-8.2); BASOPHILS % (AUTO) 0.4 % (0-2); HEMATOCRIT 37.3 % (36.0-47.0); HEMOGLOBIN 12.7 g/dL (12.0-15.5); LYMPHOCYTES % (AUTO) 14.7 % (13-45); MEAN CORPUSCULAR HEMOGLOBIN 26.7 pg (27.0-33.4); MEAN CORPUSCULAR VOLUME 79 fl (80-97); MONOCYTES % (AUTO) 10.9 % (3-13); PLATELET COUNT 276 10^3/uL (150-450); RED BLOOD COUNT 4.74 10^6/uL (3.72-5.28); RED CELL DISTRIBUTION WIDTH 15.1 % (11.5-14.0); TOTAL CELLS COUNTED % (AUTO) 100 %; WHITE BLOOD COUNT 14.2 10^3/uL (4.0-10.5)
[2020-07-31 00:16] LABS: ALBUMIN 4.6 g/dL (3.5-5.0); ALKALINE PHOSPHATASE 67 U/L (38-126); ANION GAP 9 (5-19); ASPARTATE AMINO TRANSFERASE 84 U/L (14-36); BILIRUBIN,DIRECT 0.1 mg/dL (0.0-0.4); BILIRUBIN,TOTAL 0.8 mg/dL (0.2-1.3); BLOOD UREA NITROGEN 14 mg/dL (7-20); CALCIUM 9.9 mg/dL (8.4-10.2); CARBON DIOXIDE 28 mmol/L (22-30); CHLORIDE 106 mmol/L (98-107); GLUCOSE 131 mg/dL (75-110); POTASSIUM 3.3 mmol/L (3.6-5.0); TOTAL PROTEIN 7.8 g/dL (6.3-8.2)
[2020-07-31] MEDS ORDERED: HALOPERIDOL LACTATE INJ 5 MG/1 ML VIAL IM ONE ×2 (00:17→04:01)
[2020-07-31 00:20] LABS: ACETAMINOPHEN < 10 ug/mL (10-30); ALCOHOL < 10 mg/dL (NONE DETECTED); SALICYLATE < 1.0 mg/dL (2.0-20.0)
[2020-07-31] MEDS ORDERED: POTASSIUM CHLORIDE 20 MEQ PACKET PO ONE (00:42)
--- NOTE | 2020-07-31 02:16 | RADIOLOGY REPORT (SQ) ---
Left forearm x-ray two views on 07/31/2020 at 12:46 AM CLINICAL INDICATION: Left forearm pain COMPARISON: None FINDINGS: There is a calcific density in the posterior proximal forearm soft tissues. There is chronic spur formation along the proximal medial aspect of the coronoid process of the proximal ulna. There are no fractures. Visualized joints are well aligned. IMPRESSION: No acute abnormality.
[2020-07-31 02:30] LABS: APPEARANCE,URINE SLIGHTLY-CLOUDY; BILIRUBIN,URINE NEGATIVE (NEGATIVE); COLOR,URINE AMBER; GLUCOSE, URINE NEGATIVE (NEGATIVE); KETONES,URINE 20 mg/dL (NEGATIVE); PROTEIN,URINE 100 mg/dL (NEGATIVE); URINE SPECIFIC GRAVITY 1.029; UROBILINOGEN,URINE NEGATIVE mg/dL (<2.0)
[2020-07-31 02:38] LABS: URINE AMPHETAMINES SCREEN NEGATIVE; URINE BARBITURATES SCREEN NEGATIVE; URINE BENZODIAZEPINES SCREEN NEGATIVE; URINE COCAINE SCREEN NEGATIVE; URINE MARIJUANA (THC) SCREEN NEGATIVE; URINE METHADONE SCREEN NEGATIVE; URINE PHENCYCLIDINE SCREEN NEGATIVE
[2020-07-31] MEDS ORDERED: DIPHENHYDRAMINE HCL 50 MG/ML VIAL IM ONE (04:01)
[2020-07-31] MEDS ORDERED: LORAZEPAM INJ 2 MG/1 ML VIAL IM ONE (04:01)
--- NOTE | 2020-07-31 09:11 | EKG REPORT ---
SEVERITY:- ABNORMAL ECG - SINUS RHYTHM LEFT VENTRICULAR HYPERTROPHY : Confirmed by: Addison Lozano MD 31-Jul-2020 09:10:17
--- NOTE | 2020-07-31 12:18 | ER Document Report ---
Doctor's Note Notes: 07/31/20 12:18 Psychiatric team has requested Covid testing for placement
--- NOTE | 2020-07-31 13:42 | PSYCHOLOGICAL NOTE ---
Psych Note - Psych Note Date seen by psych provider: 07/31/20 Time seen by psych provider: 11:05 Psych Note: Reason for Consult:IVC Consent Permissions: unable to provided Patient arrived to [facility] ED via [facility] under 24 hour petition for evaluation. Patient is able to correctly reports she is at [facility] for her "mental health" but unable to reports any other detail about why she needs help or what happened to result in her coming to [facility] ED. Patient is semi-alert and orientated to person and place. Mood and affect is blunted. Patient reportedly presented with delusions (she does have history of this) and demonstrates disorganized thought processes. Eye contact is poor. Attention and concentration is poor. Insight, judgment and impulse control is poor. IVC Criteria per [place] GS 122C Dangerous to others Within the relevant past the individual No has inflicted or attempted to inflict or threatened to inflict serious bodily harm on another AND No that there is a reasonable probability that this conduct will be repeated as there is an absence of supervision or structure to prevent. OR No has acted in such a way as to create a substantial risk of serious bodily harm to another AND No that there is a reasonable probability that this conduct will be repeated as there is an absence of supervision or structure to prevent. OR No has engaged in extreme destruction of property AND NO that there is a reasonable probability that this conduct will be repeated as there is an absence of supervision or structure to prevent. Previous episodes of dangerousness to others, when applicable, may be considered when determining reasonable probability of future dangerous conduct. Clear, cogent, and convincing evidence that an individual has committed a homicide in the relevant past is prima facie evidence of dangerousness to others. Dangerous to self Within the relevant past the individual has done any of the following: acted in such a way as to show ALL of the following: YES The individual would be unable without care, supervision, and the continued assistance of others not otherwise available, to exercise self- control, judgment, and discretion in the conduct of the individual's daily responsibilities and social relations or to satisfy the individual's need for nourishment, personal or medical care, long-term, or self-protection and safety. AND YES There is a reasonable probability of the individual suffering serious physical debilitation within the near future unless adequate treatment is given. A showing of behavior that is grossly irrational, of actions that the individual is unable to control, of behavior that is grossly inappropriate to the situation, or of other evidence of severely impaired insight and judgment shall create a prima facie inference that the individual is unable to care for himself or herself. Patient presented disorganized and non-medication compliant. She was found wandering the street and delusional. She has a history of schizoaffective disorder with numerous psychotic events. OR No has attempted suicide or threatened suicide AND No that there is a reasonable probability of suicide unless adequate treatment is given as there is an absence of supervision or structure to prevent suicide of patient who has made an attempt, serious gesture or threat. OR No has mutilated himself or herself or attempted to mutilate himself or herself AND No that there is a reasonable probability of serious self-mutilation unless adequate treatment is given as there is an absence of supervision or structure to prevent. NOTE: Previous episodes of dangerousness to self, when applicable, may be considered when determining reasonable probability of physical debilitation, suicide, or self-mutilation. Medication recommendations are recommended; however, at this time the patient's home medication have not been reconciled Impression\\plan: Patient is recommended to continue under IVC, paperwork is signed and placed in patient's chart. Patient presents disorganized and unable to effectively engage evaluation. Her affect is blunted. She was found wandering in the roadway. Upon arrival of mobile crisis and police, the patient was found to be delusional and responding to internal stimuli. Patient has a history of schizoaffective disorder and noncompliance with medication. He has multiple inpatient psychiatric treatment. She is currently a danger to herself and others. Dr. Amato was consulted to care management of this patient; attending physicians in agreement with recommendations and disposition. Case management: [id number] faxed patient's paperwork to [facility] for placement consideration [id number] Patient has been accepted to [facility] for AM admission for Dr. Julio castanon; transportation will be requested
[2020-07-31] MEDS ORDERED: ALBUTEROL SULFATE HFA (90 MCG/PUFF) 8 GM MDI (1 MDI/ER DISP) IH PRN (20:32)
--- NOTE | 2020-07-31 20:36 | ER Document Report ---
Doctor's Note Notes: 07/31/20 20:35 Spoke with patient about her usual medications. Patient states that her doctor had recently decreased her daily steroid dose to 15 mg daily. Patient clear breath sounds bilaterally at this time.
[2020-07-31] MEDS ORDERED: MONTELUKAST SODIUM 10 MG TABLET PO SCH (22:00)
[2020-07-31] MEDS ORDERED: (PENDING PHARMACY ID) (Budesonide/Formoterol Fumarate 60 PUFF/6 GM Inhaler) IH SCH (22:00)
[2020-08-01 09:13] VITALS: BP 154/97
[2020-08-01] MEDS ORDERED: FLUTICASONE/VILANTEROL 200-25 MCG/DOSE IH SCH (10:00)
[2020-08-01] MEDS ORDERED: EZETIMIBE 10 MG TABLET PO SCH (10:00)
[2020-08-01] MEDS ORDERED: LINACLOTIDE 290 MCG PO SCH (10:00)
[2020-08-01] MEDS ORDERED: PREDNISONE 10 MG TABLET PO SCH (10:00)
[2020-08-01] MEDS ORDERED: (PENDING PHARMACY ID) (Tiotropium Bromide [Spiriva Respimat] 4 GM Mist.Inhal) PO SCH (10:00)
[2020-08-01] MEDS ORDERED: UMECLIDINIUM BROMIDE 62.5 MCG/DOSE IH SCH (10:00)
== END 2020-08-01 09:12 | disposition other institution (70) ==
LOC: ER 22:42
DX: Z04.6 Encounter for general psychiatric examination, requested by authority (principal); F25.9 Schizoaffective disorder, unspecified; M79.632 Pain in left forearm; D72.829 Elevated white blood cell count, unspecified; I10 Essential (primary) hypertension; J45.909 Unspecified asthma, uncomplicated; E11.9 Type 2 diabetes mellitus without complications; Z91.040 Latex allergy status; Z91.013 Allergy to seafood; Z88.1 Allergy status to other antibiotic agents; Z91.041 Radiographic dye allergy status; Z20.828 Contact with and (suspected) exposure to other viral communicable diseases
CPT/HCPCS: 93005; 99285; 96372; 36415; 82962; 80307 ×4; 85025; 80053; 81001; 93010; U0003; J1200; J1630; J2060; A9270; J3490; C9803; 87635